=== PATIENT | female | born 1970 | race Caucasian/White ===

== ENCOUNTER 2018-04-19 09:17 | Day surgery (SDC) | payer OTHER ==
[~2018-04-19 09:17] MED LIST: ALBU90OI INH; ALLEGRA ALLERG180 MG PO; ALLER-FEX180 MG PO; AMIT10; AMIT25; AMIT50 PO; APRE80; Amitriptyline H50 MG PO; CHOL10002 PO; CITRACAL D + H1 EACH PO; CYCL10; CYCL10 PO; CYCLOPHOSPHAMIDE; Calcium Citrat250 MG PO; Coumadin5 MG PO; DEXAMETH; DHEA PO; DOXORUBICIN; Dhea Tablet1 EACH PO; ESZO3; ESZO3 PO; FEXO180; FLUC150A PO; FLUT.05NI; FOLI1 PO; Flonase 0.05% N16 GM; GABA300; HYDACE5; HYDR1TAB94 PO; IBUP800 PO; Inderal40 MG; Inderal40 MG PO; LEVSOD75 PO; LEVSOD88 PO; LIOT5 PO; Lovenox100 MG/1 M SC; METHOTREXA25 MG/1 M8; MILLIPRED DP5 MG PO; MULVITA; Methotrexa25 MG/1 ML INJ; NAPR500 PO; Norco 5-325 Ta1 EACH PO; OMEPRAZOLE MAGN20 MG PO; OTEZLA30 MG PO; OTREXUP 1212.5 MG/0. INJ; OXYACE5T; OXYACE5T PO; Omeprazole20 M1 PO; PARO20; PARO30 PO; PILO5 PO; POTA10T PO; PRED5; PRED5 PO; PREG25 PO; PREG300 PO; PROM25 PO; PROP80ER PO; Prednisone20 MG PO; Prilosec Otc20 MG PO; SIMPONI AR50 MG/4 ML; SIMPONI AR50 MG/4 ML IV; SODCITSO; SULF500A; TOPI25 PO; TOPI50 PO; VITAMIN D35000 UNI1 PO; WARF5; ZOLM2.5; ZOLM5; ZOLM5 PO; Zithromax250 MG PO; Zomig5 M1; [UNRECOGNIZED DRUG - CODE]; [UNRECOGNIZED DRUG - OTHER]; qvar; remicade
--- NOTE | 2018-04-19 12:22 | NUR ---
04/19/18 1222 Kierra Zhang LATE ENTRY---UPON ARRIVAL INTO STEP DOWN PATIENT ADMITTED THAT SHE HAD ABDOMINAL PAIN 4/10 THAT WAS STEADY AND CONSTANT IN NATURE. NO PAIN MEDS NEEDED AND PAIN IS TOLERABLE. WHEN DISCUSSING DISCHARGE INSTRUCTIONS THE PATIENT THEN RATED HER PAIN AT 2/[address] WINKLER WAS NOTIFIED AND NO ADDITIONAL ORDERS WERE GIVEN. PATIENT DRESSED WITHOUT ASSISTANCE AND I WALKED HER OUT TO THE CAR. SHE SAID HER PAIN WAS IMPROVING AND ALMOST GONE. PATIENT DISCHARGED IN STABLE CONDITION
== END 2018-04-19 11:48 | disposition home or self-care (01) ==
LOC: ORSCSDS 09:17
PROVIDERS: Surgery
PROC: 0DBM8ZX Excision of Descending Colon, Via Natural or Artificial Opening Endoscopic, Diagnostic (ICD-10-PCS; principal; 2018-04-19 11:00)
PROC: 0DBK8ZX Excision of Ascending Colon, Via Natural or Artificial Opening Endoscopic, Diagnostic (ICD-10-PCS; principal; 2018-04-19 11:00)
PROC: 0DBH8ZX Excision of Cecum, Via Natural or Artificial Opening Endoscopic, Diagnostic (ICD-10-PCS; principal; 2018-04-19 11:00)
PROC: 0DBL8ZX Excision of Transverse Colon, Via Natural or Artificial Opening Endoscopic, Diagnostic (ICD-10-PCS; principal; 2018-04-19 11:00)
DX: Z12.11 Encounter for screening for malignant neoplasm of colon (principal); D12.0 Benign neoplasm of cecum; D12.2 Benign neoplasm of ascending colon; D12.3 Benign neoplasm of transverse colon; K63.5 Polyp of colon; E03.9 Hypothyroidism, unspecified; G47.33 Obstructive sleep apnea (adult) (pediatric); J45.909 Unspecified asthma, uncomplicated; Z79.899 Other long term (current) drug therapy; E66.01 Morbid (severe) obesity due to excess calories; Z68.41 Body mass index [BMI] 40.0-44.9, adult
CPT/HCPCS: 88305; J7120

== ENCOUNTER → 2018-05-12 | Outpatient (CLI) | payer OTHER | LOC: LAB 14:00 → LAB SHORT 14:00 | DX: R19.7 Diarrhea, unspecified (principal) | CPT/HCPCS: 87493 ==

== ENCOUNTER 2018-09-28 06:42 | Day surgery (SDC) | payer OTHER ==
[~2018-09-28] VITALS: Ht 160 cm; Wt 107.6 kg
[~2018-09-28 06:42] MED LIST changes: +DULO60 PO; +METHOTREXA25 MG/1 M8 IM
== END 2018-09-28 08:44 | disposition home or self-care (01) ==
LOC: ORSCSDS 06:42
PROVIDERS: Surgery
PROC: 0DB48ZX Excision of Esophagogastric Junction, Via Natural or Artificial Opening Endoscopic, Diagnostic (ICD-10-PCS; principal; 2018-09-28 08:00)
PROC: 0DB68ZX Excision of Stomach, Via Natural or Artificial Opening Endoscopic, Diagnostic (ICD-10-PCS; principal; 2018-09-28 08:00)
DX: R10.13 Epigastric pain (principal); K31.7 Polyp of stomach and duodenum; K29.70 Gastritis, unspecified, without bleeding; G47.33 Obstructive sleep apnea (adult) (pediatric); G47.30 Sleep apnea, unspecified; F51.9 Sleep disorder not due to a substance or known physiological condition, unspecified; K21.9 Gastro-esophageal reflux disease without esophagitis; E03.9 Hypothyroidism, unspecified; E78.5 Hyperlipidemia, unspecified; I10 Essential (primary) hypertension; E66.9 Obesity, unspecified; Z68.41 Body mass index [BMI] 40.0-44.9, adult; Z79.899 Other long term (current) drug therapy
CPT/HCPCS: 88305; 88342; J2405; J2704; J7120

== ENCOUNTER → 2019-05-23 | Outpatient (CLI) | payer OTHER | LOC: LAB 12:00 → LAB SHORT 12:00 | DX: R00.0 Tachycardia, unspecified (principal) | CPT/HCPCS: 84443 ==

== ENCOUNTER 2020-08-25 18:02 | Emergency (ER) | payer OTHER ==
[~2020-08-25] VITALS: Ht 160 cm; Wt 108.9 kg
[~2020-08-25 18:02] MED LIST changes: +BISOPROLOL; +Bisoprolol Fumar5 MG PO; +DULOXETINE HCL60 M1 PO; +FUROSEMIDE20 MG PO; +GABA300 PO; +OMEP20ER PO; +PRED20 PO; -Prilosec Otc20 MG PO; +VITAMIN D5000 UNIT PO
== END 2020-08-25 20:01 | disposition home or self-care (01) ==
LOC: ER 18:02
DX: R60.0 Localized edema (principal); E03.9 Hypothyroidism, unspecified; Z88.1 Allergy status to other antibiotic agents; Z91.041 Radiographic dye allergy status; Z79.899 Other long term (current) drug therapy; Z79.52 Long term (current) use of systemic steroids
CPT/HCPCS: 36415; 93971; 99283-25

== ENCOUNTER 2020-09-10 16:30 | Emergency (ER) | payer OTHER ==
[~2020-09-10] VITALS: Ht 160 cm; Wt 115.5 kg
[2020-09-10 20:02] LABS: BASOPHILS ABSOLUTE AUTO 0.06 K/mm3 (0.00-0.23); BASOPHILS PERCENT AUTO 0 % (0-2); EOSINOPHILS ABSOLUTE AUTO 0.28 K/mm3 (0.00-0.68); EOSINOPHILS PERCENT AUTO 2 % (0-6); Hematocrit 30.5 % (33.0-51.0); Hemoglobin 8.8 g/dL (11.5-16.0); IMMATURE GRAN ABSOLUTE AUTO 0.29 K/mm3 (0.00-0.10); IMMATURE GRAN PERCENT AUTO 2 % (0-1); LYMPHOCYTES ABSOLUTE AUTO 2.48 K/mm3 (0.84-5.20); LYMPHOCYTES PERCENT AUTO 13 % (21-46); MONOCYTES ABSOLUTE AUTO 1.03 K/mm3 (0.16-1.47); MONOCYTES PERCENT AUTO 6 % (4-13); Mean Corpuscular HGB Conc 28.9 g/dL (31.5-36.5); Mean Corpuscular Volume 90 fL (80-100); Mean Platelet Volume 9.5 fL (9.1-12.4); NEUTROPHILS ABSOLUTE AUTO 14.63 K/mm3 (1.96-9.15); NEUTROPHILS PERCENT AUTO 78 % (41-73); NRBC ABSOLUTE 0.09 K/mm3 (0.00-0.02); NRBC Auto 0.5 /100 WBC (0.0-0.2); Platelet Count 458 K/mm3 (150-400); RDW Standard Deviation 57.2 fL (35.1-46.3); Red Blood Cell Count 3.39 M/mm3 (3.80-5.20); White Blood Cell Count 18.77 K/mm3 (4.00-11.30)
[2020-09-10] MEDS ORDERED: CYCL10 PO (20:20)
[2020-09-10] MEDS ORDERED: PILO5 PO (20:21)
[2020-09-10] MEDS ORDERED: CODACE30 PO (20:22)
[2020-09-10] MEDS ORDERED: NEURONTIN300 MG PO (20:23)
[2020-09-10] MEDS ORDERED: Prednisone10 MG PO (20:23)
[2020-09-10] MEDS ORDERED: OTEZLA30 MG PO (20:24)
[2020-09-10] MEDS ORDERED: MOBIC15 MG PO (20:25)
[2020-09-10] MEDS ORDERED: LEUC5 PO (20:25)
[2020-09-10] MEDS ORDERED: ATOR40TA PO (20:26)
[2020-09-10] MEDS ORDERED: FUROSEMIDE20 MG PO (20:26)
[2020-09-10] MEDS ORDERED: METF500 PO (20:27)
[2020-09-10] MEDS ORDERED: ESZOPICLONE3 MG PO (20:27)
[2020-09-10] MEDS ORDERED: CYMBALTA30 M2 PO (20:28)
[2020-09-10 20:29] LABS: Alanine Aminotransfer (ALT/SGP 52 U/L (12-78); Albumin, Blood 3.4 g/dL (3.4-5.0); Albumin/Globulin Ratio 0.8 (0.8-1.8); Alk Phos 151 U/L (50-136); Anion Gap 6 mmol/L (6-16); Aspartate Aminotrans (AST/SGOT 37 U/L (12-37); Bilirubin, Total 0.5 mg/dL (0.1-1.0); Blood Urea Nitrogen 6 mg/dL (8-24); Bun/Creatinine Ratio 9.4 (12.0-20.0); CO2, Blood 32 mmol/L (21-32); Calcium, Blood 9.4 mg/dL (8.5-10.1); Chloride, Blood 97 mmol/L (98-108); Creatinine, Blood 0.64 mg/dL (0.40-1.00); Globulin, Blood 4.2 g/dL (2.2-4.0); Glomerular Filtration Rate >60 (60-); Glucose, Blood 116 mg/dL (70-99); Magnesium, Blood 1.2 mg/dL (1.6-2.4); Potassium, Blood 3.3 mmol/L (3.5-5.5); Sodium, Blood 135 mmol/L (136-145); Total Protein, Blood 7.6 g/dL (6.4-8.2)
[2020-09-10] MEDS ORDERED: LIOT5 PO (20:29)
[2020-09-10] MEDS ORDERED: EUTHYROX50 MCG PO (20:29)
[2020-09-10] MEDS ORDERED: METO25 PO (20:30)
[2020-09-10] MEDS ORDERED: PAXIL40 M1 PO (20:31)
[2020-09-10] MEDS ORDERED: Amitriptyline H50 MG PO (21:40)
[2020-09-10] MEDS ORDERED: CLOP75 PO (21:43)
[2020-09-10] MEDS ORDERED: Percocet 5-3251 EACH PO (21:43)
[2020-09-10] MEDS ORDERED: XARELTO2.5 M1 PO (21:43)
[2020-09-10] MEDS ORDERED: XATMEP2.5 MG/1 M IM (22:07)
[2020-09-10 22:19] LABS: International Normalized Ratio 1.06; Prothrombin Time Results 11.4 Sec (9.7-11.5)
== END 2020-09-10 22:30 | disposition home or self-care (01) ==
LOC: ER 16:30
PROVIDERS: Emergency Medicine
DX: I70.202 Unspecified atherosclerosis of native arteries of extremities, left leg (principal); Z79.899 Other long term (current) drug therapy; Z91.041 Radiographic dye allergy status; Z88.1 Allergy status to other antibiotic agents
CPT/HCPCS: 80053; 83735; 85025; 85610; 85730; 86850; 86900; 86901; 93926; 96374; 99284-25; A9270; J1644; J3010

== ENCOUNTER 2020-09-20 13:27 | Emergency (ER) | payer OTHER ==
[~2020-09-20] VITALS: Ht 160 cm; Wt 115.2 kg
[~2020-09-20 13:27] MED LIST changes: +ATOR40TA PO; +CLOP75 PO; +CODACE30 PO; +CYMBALTA30 M2 PO; +ESZOPICLONE3 MG PO; +EUTHYROX50 MCG PO; +LEUC5 PO; +METF500 PO; +METO25 PO; +MOBIC15 MG PO; +NEURONTIN300 MG PO; +PAXIL40 M1 PO; +Percocet 5-3251 EACH PO; +Prednisone10 MG PO; +XARELTO2.5 M1 PO; +XATMEP2.5 MG/1 M IM
[2020-09-20 14:07] LABS: Source, Urine Clean Catch
[2020-09-20 14:19] LABS: Bilirubin, Urine Neg (Neg); Blood, Urine 1+ (Neg); Glucose Qualitative, Urine Neg (Neg); Ketones, Urine Neg (Neg); Leukocyte Esterase, Urine 3+ (Neg); Nitrite, Urine Neg (Neg); Protein, Urine Neg (Neg); Specific Gravity, Urine 1.005 (1.003-1.022); Urobilinogen, Urine NORM (Normal); pH, Urine 6.5 (5.0-8.0)
[2020-09-20 14:28] LABS: Appearance, Urine Hazy (Clear); Color, Urine Pale Yellow (P-Yellow)
[2020-09-20 14:29] LABS: Squamous Epithelial Cells Many /hpf (Few); White Blood Cells, Urine 50-100 /hpf (0-5)
[2020-09-20 14:30] LABS: Bacteria Many /hpf; Red Blood Cells, Urine 0-2 /hpf (0-2)
[2020-09-20] MEDS ORDERED: Percocet 5-3251 EACH PO (14:39)
== END 2020-09-20 14:55 | disposition home or self-care (01) ==
LOC: ER 13:27
PROVIDERS: Physician Assistant
DX: B35.3 Tinea pedis (principal); I73.9 Peripheral vascular disease, unspecified; Z88.1 Allergy status to other antibiotic agents; Z79.84 Long term (current) use of oral hypoglycemic drugs; Z91.041 Radiographic dye allergy status; Z79.899 Other long term (current) drug therapy
CPT/HCPCS: 81001; 87077; 87086; 87186; 99283

== ENCOUNTER 2020-09-24 07:33 | Day surgery (SDC) | payer OTHER ==
[~2020-09-24] VITALS: Ht 160 cm; Wt 115.0 kg
[2020-09-24 08:06] LABS: BASOPHILS ABSOLUTE AUTO 0.03 K/mm3 (0.00-0.23); BASOPHILS PERCENT AUTO 0 % (0-2); EOSINOPHILS PERCENT AUTO 0 % (0-6); Hematocrit 34.3 % (33.0-51.0); Hemoglobin 9.9 g/dL (11.5-16.0); IMMATURE GRAN ABSOLUTE AUTO 0.24 K/mm3 (0.00-0.10); IMMATURE GRAN PERCENT AUTO 2 % (0-1); LYMPHOCYTES ABSOLUTE AUTO 1.14 K/mm3 (0.84-5.20); LYMPHOCYTES PERCENT AUTO 8 % (21-46); MONOCYTES ABSOLUTE AUTO 0.17 K/mm3 (0.16-1.47); MONOCYTES PERCENT AUTO 1 % (4-13); Mean Corpuscular HGB 27.7 pg (26.0-34.0); Mean Corpuscular HGB Conc 28.9 g/dL (31.5-36.5); Mean Corpuscular Volume 96 fL (80-100); Mean Platelet Volume 9.4 fL (9.1-12.4); NEUTROPHILS ABSOLUTE AUTO 12.22 K/mm3 (1.96-9.15); NEUTROPHILS PERCENT AUTO 89 % (41-73); NRBC ABSOLUTE 0.19 K/mm3 (0.00-0.02); NRBC Auto 1.4 /100 WBC (0.0-0.2); Platelet Count 478 K/mm3 (150-400); RDW Coefficient Variation 23.3 % (11.7-14.2); RDW Standard Deviation 71.1 fL (35.1-46.3); Red Blood Cell Count 3.57 M/mm3 (3.80-5.20)
[2020-09-24 08:20] LABS: Anion Gap 17 mmol/L (6-16); Blood Urea Nitrogen 3 mg/dL (8-24); Bun/Creatinine Ratio 4.7 (12.0-20.0); CO2, Blood 21 mmol/L (21-32); Calcium, Blood 8.4 mg/dL (8.5-10.1); Chloride, Blood 99 mmol/L (98-108); Creatinine, Blood 0.64 mg/dL (0.40-1.00); Glomerular Filtration Rate >60 (60-); Glucose, Blood 187 mg/dL (70-99); Potassium, Blood 3.4 mmol/L (3.5-5.5); Sodium, Blood 137 mmol/L (136-145)
[2020-09-24 08:28] LABS: International Normalized Ratio 1.1; Prothrombin Time Results 11.8 Sec (9.7-11.5)
--- NOTE | 2020-09-24 13:21 | NUR ---
PT AMB TO BATHROOM /C SBA. TOLERATED WELL. -BLEEDING OR SWELLING R GROIN AREA.
--- NOTE | 2020-09-24 13:22 | NUR ---
PT VERBALIZED UNDERSTANDING OF WRITTEN AND VERBAL D/C INST. IV REMOVED. PT TAKEN OUT OF THE HRT CENTER VIA W/C.
== END 2020-09-24 13:45 | disposition home or self-care (01) ==
LOC: MHTC 07:33
PROVIDERS: Radiology Diagnostic Radiology
DX: I70.202 Unspecified atherosclerosis of native arteries of extremities, left leg (principal); M79.605 Pain in left leg; I99.8 Other disorder of circulatory system; M06.9 Rheumatoid arthritis, unspecified; E66.9 Obesity, unspecified; G47.33 Obstructive sleep apnea (adult) (pediatric); Z85.3 Personal history of malignant neoplasm of breast; Z86.711 Personal history of pulmonary embolism; Z88.1 Allergy status to other antibiotic agents; Z91.041 Radiographic dye allergy status; Z88.8 Allergy status to other drugs, medicaments and biological substances; Z68.42 Body mass index [BMI] 45.0-49.9, adult; Z92.21 Personal history of antineoplastic chemotherapy; Z96.653 Presence of artificial knee joint, bilateral; Z79.02 Long term (current) use of antithrombotics/antiplatelets; Z79.01 Long term (current) use of anticoagulants; Z79.52 Long term (current) use of systemic steroids
CPT/HCPCS: 37184; 37185; 37226; 37228; 37232; 75625; 75716; 75774; 76937; 80048; 85025; 85347; 85610; 99152; 99153; C1725; C1753; C1757; C1760; C1769; C1874; C1887; C1894; J0171; J1200; J2250; J2997; J3010; J7030; Q9967

== ENCOUNTER → 2020-10-12 | Outpatient (CLI) | payer OTHER | LOC: LAB 11:32 → LAB SHORT 11:32 | DX: L08.0 Pyoderma (principal); Z91.041 Radiographic dye allergy status; Z88.1 Allergy status to other antibiotic agents; Z88.8 Allergy status to other drugs, medicaments and biological substances | CPT/HCPCS: 87070; 87077; 87186; 87205 ==

== ENCOUNTER 2020-11-03 04:13 | Day surgery (SDC) | payer OTHER | END 2020-11-03 22:41 | disposition home or self-care (01) | LOC: WOUND 04:13 | DX: I70.213 Atherosclerosis of native arteries of extremities with intermittent claudication, bilateral legs (principal); L97.529 Non-pressure chronic ulcer of other part of left foot with unspecified severity; Z88.1 Allergy status to other antibiotic agents; Z91.041 Radiographic dye allergy status | CPT/HCPCS: G0463 ==

== ENCOUNTER 2020-11-10 02:33 | Day surgery (SDC) | payer OTHER | END 2020-11-10 23:28 | disposition home or self-care (01) | LOC: WOUND 02:33 | DX: I70.245 Atherosclerosis of native arteries of left leg with ulceration of other part of foot (principal); L97.529 Non-pressure chronic ulcer of other part of left foot with unspecified severity; I70.211 Atherosclerosis of native arteries of extremities with intermittent claudication, right leg | CPT/HCPCS: G0463 ==

== ENCOUNTER 2020-11-17 01:59 | Day surgery (SDC) | payer OTHER | END 2020-11-17 23:00 | disposition home or self-care (01) | LOC: WOUND 01:59 | DX: L97.529 Non-pressure chronic ulcer of other part of left foot with unspecified severity (principal); I70.222 Atherosclerosis of native arteries of extremities with rest pain, left leg; S91.202S Unspecified open wound of left great toe with damage to nail, sequela; S91.105 Unspecified open wound of left lesser toe(s) without damage to nail | CPT/HCPCS: G0463 ==

== ENCOUNTER 2020-11-18 06:23 | Day surgery (SDC) | payer OTHER ==
[~2020-11-18] VITALS: Ht 160 cm; Wt 109.0 kg
--- NOTE | 2020-11-18 10:04 | NUR ---
PT BROUGHT BACK TO RECOVERY WITH R SIDED SHEATH IN PLACE WITH INFUSION CATHETER PLACED TO L LEG. PLAN OF CARE ASSESSED/ NEW ORDERS IN PLACE. WILL DRIP TpA & HEPARIN GTT FOR THE NEXT 4 HRS, TO RETURN TO AUTO REPAIR SHOP MANAGER FOR REASSESSMENT. NO BLEEDING OR HEMATOMA NOTED AT SITE. PT RESTING COMFORTABLY. VSS. NADN. WILL CONTINUE TO MONITOR.
--- NOTE | 2020-11-18 10:12 | NUR ---
PER DR OSBORNE ORDERS- HEPARIN 500 UNITS/HR GTT STARTED TO SIDE PORT OF SHEATH AND TpA 3MG/ HR GTT STARTED INFUSING VIA INFUSION CATHETER VIA. WILL CONTINUE TO MONITOR. PT RESTING COMFORTABLY, SLEEPING, AROUSES WITH VERABAL STIMULI. VSS. NADN. CALL LIGHT WITHIN REACH.
--- NOTE | 2020-11-18 11:44 | NUR ---
PT REMAINS LAYING SUPINE. tPA AND HEPARIN ARE INFUSING THROUGH THE SHEATH ORDERED. R FEM SITE HAS NO BLEEDING, OOZING OR HEMATOMA NOTED. PT DENIES ANY PAIN AT SITE BUT REPORTS SOME DISCOMFORT IN LEGS AND FEET. PT GIVEN ICE CHIPS AND DENIES ANY FURTHER NEEDS AT THIS TIME. VSS. WILL CONTINUE TO MONITOR.
--- NOTE | 2020-11-18 13:46 | NUR ---
PT GIVEN PERCOCET PO PER ORDERS D/T INCREASED BACK AND LEG PAIN. TOLERATES WELL. VSS. TpA GTT HAS FINISHED INFUSING. HEPARIN GTT INFUSING WELL.
--- NOTE | 2020-11-18 14:52 | NUR ---
PT HEPARIN GTT DC'D PER DR OSBORNE. PT BROUGHT BACK TO BALL MACHINE OPERATOR FOR FURTHER INTERVENTION. VSS. DEJESUS.
--- NOTE | 2020-11-18 17:35 | NUR ---
PT RESTING COMFORATBLY. VSS. NADN. R FEMORAL SITE REMAINS CLEAR. NO BLEEDING OR HEMATOMA NOTED. PT EATING LUNCH AT THIS TIME. WILL CONTINUE TO MONITOR
--- NOTE | 2020-11-18 18:03 | NUR ---
PT DRESSES SELF WITHOUT DIFF. R FEMORAL SITE REMAINS CLEAR. NO BLEDING OR HEMATOMA NOTED. PT VERBALIZES UNDERSTANDING WRITTEN AND VERBAL ORDERS. PT IV DC.D. CATH IN TACT. PRESSURE DSG APPLIED. PT WILL BE DC'D TO HOME VIA WC.
== END 2020-11-18 23:01 | disposition home or self-care (01) ==
LOC: MHTC 06:23
DX: I70.213 Atherosclerosis of native arteries of extremities with intermittent claudication, bilateral legs (principal); M06.09 Rheumatoid arthritis without rheumatoid factor, multiple sites; Z85.3 Personal history of malignant neoplasm of breast; Z91.041 Radiographic dye allergy status; Z88.8 Allergy status to other drugs, medicaments and biological substances
CPT/HCPCS: 37184; 37185; 37211; 37226; 37228; 37232; 75716; 75774; 76937; 85347; 99152; 99153; A9270; C1725; C1757; C1760; C1769; C1874; C1887; C1894; J1644; J2060; J2250; J2405; J2997; J3010; J7030; J7040; J7050; Q9967

== ENCOUNTER 2020-11-24 00:23 | Day surgery (SDC) | payer OTHER | END 2020-11-24 22:37 | disposition home or self-care (01) | LOC: WOUND 00:23 | DX: L97.521 Non-pressure chronic ulcer of other part of left foot limited to breakdown of skin (principal); I73.9 Peripheral vascular disease, unspecified; I70.222 Atherosclerosis of native arteries of extremities with rest pain, left leg; C50.919 Malignant neoplasm of unspecified site of unspecified female breast; M06.9 Rheumatoid arthritis, unspecified; Z92.21 Personal history of antineoplastic chemotherapy; Z92.3 Personal history of irradiation; Z79.899 Other long term (current) drug therapy | CPT/HCPCS: G0463 ==

== ENCOUNTER 2020-12-01 01:50 | Day surgery (SDC) | payer OTHER | END 2020-12-01 22:57 | disposition home or self-care (01) | LOC: WOUND 01:50 | DX: L97.521 Non-pressure chronic ulcer of other part of left foot limited to breakdown of skin (principal); I73.9 Peripheral vascular disease, unspecified; I70.222 Atherosclerosis of native arteries of extremities with rest pain, left leg; M06.9 Rheumatoid arthritis, unspecified; S91.202D Unspecified open wound of left great toe with damage to nail, subsequent encounter; Z85.3 Personal history of malignant neoplasm of breast; Z92.3 Personal history of irradiation; Z92.21 Personal history of antineoplastic chemotherapy ==

== ENCOUNTER 2020-12-22 03:45 | Day surgery (SDC) | payer BC ==
[~2020-12-22 03:45] MED LIST changes: +XARELTO15 MG PO; +XARELTO20 MG PO
== END 2020-12-22 23:38 | disposition home or self-care (01) ==
LOC: WOUND 03:45
DX: S91.202S Unspecified open wound of left great toe with damage to nail, sequela (principal); S91.105 Unspecified open wound of left lesser toe(s) without damage to nail; X58.XXXS Exposure to other specified factors, sequela; I70.222 Atherosclerosis of native arteries of extremities with rest pain, left leg; M06.9 Rheumatoid arthritis, unspecified; Z85.3 Personal history of malignant neoplasm of breast; Z79.899 Other long term (current) drug therapy
CPT/HCPCS: G0463

== ENCOUNTER 2020-12-25 15:07 | Emergency (ER) | payer BC ==
[~2020-12-25] VITALS: Ht 160 cm; Wt 105.2 kg
[2020-12-25 16:19] LABS: BASOPHILS ABSOLUTE AUTO 0.06 K/mm3 (0.00-0.23); BASOPHILS PERCENT AUTO 0 % (0-2); EOSINOPHILS ABSOLUTE AUTO 0.42 K/mm3 (0.00-0.68); EOSINOPHILS PERCENT AUTO 2 % (0-6); Hematocrit 28.8 % (33.0-51.0); Hemoglobin 8.6 g/dL (11.5-16.0); IMMATURE GRAN ABSOLUTE AUTO 0.17 K/mm3 (0.00-0.10); IMMATURE GRAN PERCENT AUTO 1 % (0-1); LYMPHOCYTES ABSOLUTE AUTO 0.91 K/mm3 (0.84-5.20); LYMPHOCYTES PERCENT AUTO 5 % (21-46); MONOCYTES ABSOLUTE AUTO 0.51 K/mm3 (0.16-1.47); MONOCYTES PERCENT AUTO 3 % (4-13); Mean Corpuscular HGB 29.9 pg (26.0-34.0); Mean Corpuscular HGB Conc 29.9 g/dL (31.5-36.5); Mean Corpuscular Volume 100 fL (80-100); Mean Platelet Volume 9.9 fL (9.1-12.4); NEUTROPHILS ABSOLUTE AUTO 15.75 K/mm3 (1.96-9.15); NEUTROPHILS PERCENT AUTO 88 % (41-73); NRBC ABSOLUTE 0.08 K/mm3 (0.00-0.02); NRBC Auto 0.4 /100 WBC (0.0-0.2); Platelet Count 644 K/mm3 (150-400); RDW Coefficient Variation 15.9 % (11.7-14.2); RDW Standard Deviation 58.4 fL (35.1-46.3); Red Blood Cell Count 2.88 M/mm3 (3.80-5.20); White Blood Cell Count 17.82 K/mm3 (4.00-11.30)
[2020-12-25 16:34] LABS: Alanine Aminotransfer (ALT/SGP 29 U/L (12-78); Albumin, Blood 3.1 g/dL (3.4-5.0); Albumin/Globulin Ratio 0.7 (0.8-1.8); Alk Phos 150 U/L (50-136); Anion Gap 7 mmol/L (6-16); Aspartate Aminotrans (AST/SGOT 35 U/L (12-37); Bilirubin, Total 0.6 mg/dL (0.1-1.0); Blood Urea Nitrogen 4 mg/dL (8-24); Bun/Creatinine Ratio 7.6 (12.0-20.0); CO2, Blood 26 mmol/L (21-32); Chloride, Blood 104 mmol/L (98-108); Creatinine, Blood 0.52 mg/dL (0.40-1.00); Globulin, Blood 4.2 g/dL (2.2-4.0); Glomerular Filtration Rate >60 (60-); Glucose, Blood 128 mg/dL (70-99); Potassium, Blood 4.1 mmol/L (3.5-5.5); Sodium, Blood 137 mmol/L (136-145); Total Protein, Blood 7.3 g/dL (6.4-8.2)
[2020-12-25] MEDS ORDERED: ELIQUIS2.5 MG PO (16:50)
[2020-12-25 19:55] LABS: International Normalized Ratio 1.08; Prothrombin Time Results 11.6 Sec (9.7-11.5)
== END 2020-12-26 00:38 | disposition home or self-care (01) ==
LOC: ER 15:07
PROVIDERS: Emergency Medicine; Physician Assistant
DX: I70.202 Unspecified atherosclerosis of native arteries of extremities, left leg (principal); M06.9 Rheumatoid arthritis, unspecified; E03.9 Hypothyroidism, unspecified; Z88.1 Allergy status to other antibiotic agents; Z88.8 Allergy status to other drugs, medicaments and biological substances; Z79.899 Other long term (current) drug therapy; Z79.02 Long term (current) use of antithrombotics/antiplatelets; Z86.718 Personal history of other venous thrombosis and embolism; Z86.711 Personal history of pulmonary embolism
CPT/HCPCS: 36415; 73630; 80053; 85025; 85610; 85730; 93926; 96374; 96375; 99284-25; A9270; J1644; J3370; J7050

== ENCOUNTER 2021-01-12 01:14 | Day surgery (SDC) | payer BC ==
[~2021-01-12 01:14] MED LIST changes: +ANTIFUNGAL POWD71 GM TOP; +ELIQUIS2.5 MG PO; +MAGNESIUM OXID500 MG PO; +POTASSIUM CHLO20 MEQ
== END 2021-01-12 23:02 | disposition home or self-care (01) ==
LOC: WOUND 01:14
DX: L97.529 Non-pressure chronic ulcer of other part of left foot with unspecified severity (principal); I70.222 Atherosclerosis of native arteries of extremities with rest pain, left leg; S91.202S Unspecified open wound of left great toe with damage to nail, sequela; S91.105 Unspecified open wound of left lesser toe(s) without damage to nail; X58.XXXS Exposure to other specified factors, sequela; Z91.041 Radiographic dye allergy status; Z88.1 Allergy status to other antibiotic agents; Z88.8 Allergy status to other drugs, medicaments and biological substances
CPT/HCPCS: G0463

== ENCOUNTER 2021-01-19 02:49 | Day surgery (SDC) | payer BC | END 2021-01-19 12:00 | disposition home or self-care (01) | LOC: WOUND 02:49 | DX: L97.529 Non-pressure chronic ulcer of other part of left foot with unspecified severity (principal); I70.222 Atherosclerosis of native arteries of extremities with rest pain, left leg; S91.202S Unspecified open wound of left great toe with damage to nail, sequela; S91.105 Unspecified open wound of left lesser toe(s) without damage to nail; X58.XXXS Exposure to other specified factors, sequela; I96 Gangrene, not elsewhere classified; D68.61 Antiphospholipid syndrome | CPT/HCPCS: G0463 ==

== ENCOUNTER 2021-01-21 07:12 | Emergency (ER) | payer BC ==
[~2021-01-21] VITALS: Ht 160 cm; Wt 101.6 kg
[2021-01-21] MEDS ORDERED: Norco 5-325 Ta1 EACH PO (08:35)
== END 2021-01-21 09:30 | disposition home or self-care (01) ==
LOC: ER 07:12
DX: S22.32XA Fracture of one rib, left side, initial encounter for closed fracture (principal); Z79.899 Other long term (current) drug therapy; W19.XXXA Unspecified fall, initial encounter
CPT/HCPCS: 71045; 96372; 99283-25; J1885; J3010

== ENCOUNTER 2021-01-23 15:01 | Emergency (ER) | payer BC ==
[~2021-01-23] VITALS: Ht 160 cm; Wt 101.6 kg
== END 2021-01-23 17:57 | disposition home or self-care (01) ==
LOC: ER 15:01
DX: M25.562 Pain in left knee (principal); Z86.711 Personal history of pulmonary embolism; Z79.01 Long term (current) use of anticoagulants; Z88.1 Allergy status to other antibiotic agents; Z91.048 Other nonmedicinal substance allergy status; Z79.52 Long term (current) use of systemic steroids; Z79.899 Other long term (current) drug therapy
CPT/HCPCS: 93926; 93971; 99283-25; A9270

== ENCOUNTER 2021-01-26 04:39 | Day surgery (SDC) | payer BC | END 2021-01-26 22:40 | disposition home or self-care (01) | LOC: WOUND 04:39 | DX: L97.522 Non-pressure chronic ulcer of other part of left foot with fat layer exposed (principal); L97.529 Non-pressure chronic ulcer of other part of left foot with unspecified severity; S91.202S Unspecified open wound of left great toe with damage to nail, sequela; S91.105 Unspecified open wound of left lesser toe(s) without damage to nail; X58.XXXS Exposure to other specified factors, sequela; I70.222 Atherosclerosis of native arteries of extremities with rest pain, left leg; D68.61 Antiphospholipid syndrome | CPT/HCPCS: G0463 ==

== ENCOUNTER 2021-02-02 01:28 | Day surgery (SDC) | payer BC | END 2021-02-02 22:49 | disposition home or self-care (01) | LOC: WOUND 01:28 | DX: I70.245 Atherosclerosis of native arteries of left leg with ulceration of other part of foot (principal); L97.529 Non-pressure chronic ulcer of other part of left foot with unspecified severity; L97.522 Non-pressure chronic ulcer of other part of left foot with fat layer exposed; M06.9 Rheumatoid arthritis, unspecified; Z79.899 Other long term (current) drug therapy; Z95.820 Peripheral vascular angioplasty status with implants and grafts | CPT/HCPCS: G0463 ==

== ENCOUNTER 2021-02-09 01:25 | Day surgery (SDC) | payer BC | END 2021-02-09 22:40 | disposition home or self-care (01) | LOC: WOUND 01:25 | DX: L97.522 Non-pressure chronic ulcer of other part of left foot with fat layer exposed (principal); L97.529 Non-pressure chronic ulcer of other part of left foot with unspecified severity; S91.202S Unspecified open wound of left great toe with damage to nail, sequela; S91.105 Unspecified open wound of left lesser toe(s) without damage to nail; X58.XXXS Exposure to other specified factors, sequela; I70.222 Atherosclerosis of native arteries of extremities with rest pain, left leg; I96 Gangrene, not elsewhere classified; D68.61 Antiphospholipid syndrome | CPT/HCPCS: G0463 ==

== ENCOUNTER 2021-02-16 03:18 | Day surgery (SDC) | payer BC | END 2021-02-16 23:35 | disposition home or self-care (01) | LOC: WOUND 03:18 | DX: I70.268 Atherosclerosis of native arteries of extremities with gangrene, other extremity (principal); L98.499 Non-pressure chronic ulcer of skin of other sites with unspecified severity; D68.61 Antiphospholipid syndrome | CPT/HCPCS: G0463 ==

== ENCOUNTER 2021-02-22 10:17 | Day surgery (SDC) | payer BC ==
[~2021-02-22] VITALS: Ht 160 cm; Wt 100.0 kg
[2021-02-22] MEDS ORDERED: PANTOPRAZOLE SO40 M2 PO (11:35)
== END 2021-02-22 13:33 | disposition home or self-care (01) ==
LOC: ORSCSDS 10:17
PROVIDERS: Podiatrist Foot & Ankle Surgery
PROC: 0Y6Q0Z3 Detachment at Left 1st Toe, Low, Open Approach (ICD-10-PCS; principal; 2021-02-22 12:00)
DX: L97.521 Non-pressure chronic ulcer of other part of left foot limited to breakdown of skin (principal); I10 Essential (primary) hypertension; E78.5 Hyperlipidemia, unspecified; G47.33 Obstructive sleep apnea (adult) (pediatric); Z86.718 Personal history of other venous thrombosis and embolism; Z79.01 Long term (current) use of anticoagulants; E11.9 Type 2 diabetes mellitus without complications; E66.01 Morbid (severe) obesity due to excess calories; Z68.39 Body mass index [BMI] 39.0-39.9, adult; Z79.899 Other long term (current) drug therapy
CPT/HCPCS: 82947; A9270; J0690; J2405; J2704; J3010; J7120

== ENCOUNTER → 2021-04-29 | Outpatient (CLI) | payer BC ==
[~2021-04-29] MED LIST changes: +PANTOPRAZOLE SO40 M2 PO
[2021-04-30 18:40] LABS: Adenovirus Not Detected (NOT DETECT); Coronavirus 229E Not Detected (NOT DETECT); Coronavirus HKU1 Not Detected (NOT DETECT); Coronavirus NL63 Not Detected (NOT DETECT); Coronavirus OC43 Not Detected (NOT DETECT); Human Metapneumovirus Not Detected (NOT DETECT); Human Rhinovirus/Enterovirus Not Detected (NOT DETECT); Influenza A/2009-H1 Not Detected (NOT DETECT); Influenza A/H1 Not Detected (NOT DETECT); Influenza A/H3 Not Detected (NOT DETECT); Influenza B Not Detected (NOT DETECT); Parainfluenza Virus 1 Not Detected (NOT DETECT); Parainfluenza Virus 2 Not Detected (NOT DETECT); Parainfluenza Virus 3 Not Detected (NOT DETECT); SARS-Cov-2 (COVID-19), BioFire Not Detected (NOT DETECT)
[2021-04-30 18:41] LABS: Bordetella pertussis Not Detected (NOT DETECT); Chlamydophila pneumoniae Not Detected (NOT DETECT); Mycoplasma pneumoniae Not Detected (NOT DETECT); Parainfluenza Virus 4 Not Detected (NOT DETECT); Respiratory Syncytial Virus Detected (NOT DETECT)
== END ==
LOC: LAB SHORT 15:15
PROVIDERS: Family Medicine
DX: J06.9 Acute upper respiratory infection, unspecified (principal)
CPT/HCPCS: 0202U

== ENCOUNTER 2021-06-14 13:16 | Emergency (ER) | payer BC ==
[~2021-06-14] VITALS: Ht 160 cm; Wt 96.2 kg
[~2021-06-14 13:16] MED LIST changes: -POTASSIUM CHLO20 MEQ; +POTASSIUM CHLO20 MEQ PO
[2021-06-14 14:54] LABS: BASOPHILS ABSOLUTE AUTO 0.05 K/mm3 (0.00-0.23); BASOPHILS PERCENT AUTO 0 % (0-2); EOSINOPHILS PERCENT AUTO 1 % (0-6); Hematocrit 38.2 % (33.0-51.0); Hemoglobin 12.1 g/dL (11.5-16.0); IMMATURE GRAN ABSOLUTE AUTO 0.07 K/mm3 (0.00-0.10); IMMATURE GRAN PERCENT AUTO 1 % (0-1); LYMPHOCYTES ABSOLUTE AUTO 1.68 K/mm3 (0.84-5.20); LYMPHOCYTES PERCENT AUTO 14 % (21-46); MONOCYTES ABSOLUTE AUTO 0.68 K/mm3 (0.16-1.47); MONOCYTES PERCENT AUTO 6 % (4-13); Mean Corpuscular HGB 30.9 pg (26.0-34.0); Mean Corpuscular HGB Conc 31.7 g/dL (31.5-36.5); Mean Corpuscular Volume 98 fL (80-100); Mean Platelet Volume 9.4 fL (9.1-12.4); NEUTROPHILS ABSOLUTE AUTO 9.71 K/mm3 (1.96-9.15); NEUTROPHILS PERCENT AUTO 79 % (41-73); Platelet Count 408 K/mm3 (150-400); RDW Coefficient Variation 19.9 % (11.7-14.2); RDW Standard Deviation 70.5 fL (35.1-46.3); Red Blood Cell Count 3.91 M/mm3 (3.80-5.20); White Blood Cell Count 12.29 K/mm3 (4.00-11.30)
[2021-06-14 15:48] LABS: Alanine Aminotransfer (ALT/SGP 81 U/L (12-78); Albumin, Blood 3.7 g/dL (3.4-5.0); Alk Phos 128 U/L (50-136); Anion Gap 9 mmol/L (6-16); Aspartate Aminotrans (AST/SGOT 120 U/L (12-37); Bilirubin, Total 0.5 mg/dL (0.1-1.0); Blood Urea Nitrogen 6 mg/dL (8-24); Bun/Creatinine Ratio 11.8 (12.0-20.0); CO2, Blood 25 mmol/L (21-32); Chloride, Blood 101 mmol/L (98-108); Creatinine, Blood 0.51 mg/dL (0.40-1.00); Globulin, Blood 3.7 g/dL (2.2-4.0); Glomerular Filtration Rate >60 (60-); Glucose, Blood 139 mg/dL (70-99); Potassium, Blood 3.8 mmol/L (3.5-5.5); Sodium, Blood 135 mmol/L (136-145); Total Protein, Blood 7.4 g/dL (6.4-8.2)
[2021-06-14 16:42] LABS: International Normalized Ratio 1.8; Prothrombin Time Results 18.2 Sec (9.7-11.5)
== END 2021-06-14 17:42 | disposition home or self-care (01) ==
LOC: ER 13:16
PROVIDERS: Emergency Medicine; Physician Assistant
DX: R07.89 Other chest pain (principal); R10.11 Right upper quadrant pain; M06.9 Rheumatoid arthritis, unspecified; E03.9 Hypothyroidism, unspecified; Z79.899 Other long term (current) drug therapy; Z88.8 Allergy status to other drugs, medicaments and biological substances
CPT/HCPCS: 36415; 71045; 76705; 80053; 83690; 85025; 85610; 96374; 96375; 99284-25; A9270; J1885; J2405

== ENCOUNTER 2021-07-12 06:32 | Day surgery (SDC) | payer BC ==
[~2021-07-12] VITALS: Ht 160 cm; Wt 96.0 kg
[~2021-07-12 06:32] MED LIST changes: +POTASSIUM CHLO20 MEQ; -POTASSIUM CHLO20 MEQ PO
[2021-07-12] MEDS ORDERED: WARF4 PO (06:35)
[2021-07-12] MEDS ORDERED: DHEA 2525 MG PO (06:36)
[2021-07-12] MEDS ORDERED: XELJANZ XR11 MG PO (06:36)
[2021-07-12] MEDS ORDERED: RINVOQ30 MG PO (06:37)
[2021-07-12 07:22] LABS: International Normalized Ratio 1.63; Prothrombin Time Results 16.6 Sec (9.7-11.5)
--- NOTE | 2021-07-12 09:40 | NUR ---
0990 PATEINT ARRIVED BACK FROM THE CATTLE MANAGER WITH RIGHT GROIN ANGIOSEAL, C/O 09/10 PAIN/ FALLING OFF TO SLEEP WHEN NOT STIMULATED WITH CONVERSATION OR TOUCH. PATIENT PLACED ON THE MONITOR AND VVS. TEMP 97.1 HOB FLAT. RIGHT GROIN CDI. NO BLEEDING. PULSES R PT DOPPLER, R DP 1+, L DP 1+, L PT 1+
--- NOTE | 2021-07-12 11:59 | NUR ---
1030 PATIENT AWAKE AND HOB UP. VVS, RIGHT GROIN SITE UNCHANGED. CDI.
--- NOTE | 2021-07-12 12:01 | NUR ---
1110 PATIENT UP OOB WALKING IN THE RECOVERY ROOM. RIGHT GROIN STABLE. NO BLEEDING NOTED. NO PAIN NOTED FROM THE PATIENT. PATIENT CALLED [facility], BUT THEY WILL NOT BE HERE UNTIL AFTER 1245. PATIENT DRESSED, PIV REMOVED, CATH TIP INTACT. PRESSURE DRESSING APPLIED. WAITING FOR QUALITY IMPROVEMENT ANALYST TO DISCAHRGE HOME. REVEIWED DISCHARGE INSTRUCTIONS AND COPY GIVEN TO RODNEY ALL QUESTIONS ANSWERED. FOLLOW UP APPOINTMENT UNSERSTOOD.
== END 2021-07-12 15:04 | disposition home or self-care (01) ==
LOC: MHTC 06:32
PROVIDERS: Radiology Diagnostic Radiology
DX: I70.223 Atherosclerosis of native arteries of extremities with rest pain, bilateral legs (principal); E03.9 Hypothyroidism, unspecified; E66.9 Obesity, unspecified; Z68.37 Body mass index [BMI] 37.0-37.9, adult; J45.909 Unspecified asthma, uncomplicated; Z79.01 Long term (current) use of anticoagulants; Z96.653 Presence of artificial knee joint, bilateral; Z91.09 Other allergy status, other than to drugs and biological substances; Z91.013 Allergy to seafood; Z88.8 Allergy status to other drugs, medicaments and biological substances
CPT/HCPCS: 37226; 75716; 75774; 76937; 85610; 99152; 99153; A9270; C1760; C1769; C1874; C1887; C1894; C2623; J1644; J2060; J2250; J3010; J3480; J7030; J7050; J7060; J7120; Q9967

== ENCOUNTER → 2021-07-20 | Outpatient (CLI) | payer BC ==
[~2021-07-20] MED LIST changes: +DHEA 2525 MG PO; +RINVOQ30 MG PO; +WARF4 PO; +XELJANZ XR11 MG PO
== END ==
LOC: LAB SHORT 18:36
DX: L08.9 Local infection of the skin and subcutaneous tissue, unspecified (principal)
CPT/HCPCS: 87070; 87077; 87186; 87205

== ENCOUNTER 2021-07-26 08:00 | Day surgery (SDC) | payer BC | END 2021-07-30 22:43 | disposition home or self-care (01) | LOC: MOI US 08:00 | DX: R92.0 Mammographic microcalcification found on diagnostic imaging of breast (principal); Z85.3 Personal history of malignant neoplasm of breast | CPT/HCPCS: 19281; A4648 ==

== ENCOUNTER 2021-08-23 07:01 | Day surgery (SDC) | payer BC ==
[~2021-08-23] VITALS: Ht 160 cm; Wt 97.5 kg
[~2021-08-23 07:01] MED LIST changes: -POTASSIUM CHLO20 MEQ; +POTASSIUM CHLO20 MEQ PO
[2021-08-23] MEDS ORDERED: PRED5 PO (08:24)
--- NOTE | 2021-08-23 08:42 | NUR ---
History, Chart, Medications and Allergies reviewed before start of procedure. Patient confirms NPO status and agrees with scheduled surgery. Pre-Op teaching done. Pt verbalizes understanding. Patient reports completing Chlorhexadine shower X2 prior to admission to hospital. 2 IV ATTEMPTS TO R ARM BY VIDHYA Degroot RN.
--- NOTE | 2021-08-23 09:00 | NUR ---
PTS GLASSES PUT IN PLASTIC BAG WITH PT LABEL AND PLACED IN PACU.
--- NOTE | 2021-08-23 18:23 | NUR ---
SHIFT SUMMARY: ARRIVED TO UNIT AROUND 1345. WAS INITALLY DROWSY BUT AFTER NAP ALERT AND COOPERATIVE. HAS BEEN UP TO BATHROOM W/ SBA. DANGLED AT BEDSIDE FOR DINNER. NO CHANGES TO DRESSING SITES. PAIN REASONABLY CONTROLLED.
--- NOTE | 2021-08-23 21:21 | NUR ---
AGREE WITH TAR POT MAN SHIFT ASSESSMENT DOCUMENTATION.
--- NOTE | 2021-08-24 04:01 | NUR ---
SHIFT SUMMARY PT POD1 FOR TOTAL MASTECTOMY, MARIO DRAIN TO THE RU CHEST AND CARLOS CHEST, OUT PUT OF 25MLS AND 30MLS, SEROSANGUINOUS DRAINAGE. GAUZE TO BILAT CHEST C/D/I WITH BREAST BINDER IN PLACE. PT ON 2LNC AT START OF SHIFT SATS ABOVE 93% RT TO ROOM WITH CPAP SET UP. PT ABLE TO TOLERATE PO INTAKE, SALINE LOCKED IV ON L WRIST. PT UP TO THE BATHROOM SBA FOR LINE MANAGEMENT. VOIDING EASILY .DENIES GAS AT THIS TIME. PT MEDICATED FOR PAIN PER EMAR.VSS, CALL LIGHT IN REACH, WILL MONITOR FOR CHANGES.
[2021-08-24 04:53] LABS: International Normalized Ratio 1.36
[2021-08-24] MEDS ORDERED: Norco 5-325 Ta1 EACH PO (13:28)
--- NOTE | 2021-08-24 13:49 | NUR ---
DISCHARGE SUMMARY: PT IS VERY PLEASANT AND ENGAGING. EATING, DRINKING, AND VOIDING WELL. MARIO DRAINS HAD MODERATE DRAINAGE. PAIN MANAGED WELL T/O THE SHIFT WITH REPOSITIONING AND MEDICATION PER MAR ORDERS. PT GIVEN DISCHARGE INSTRUCTIONS, SCRIPTS, AND EXTRA GAUZE FOR SHOWERS AND DRESSING CHANGES. ESCORTED OUT TO PRIVATE VEHICLE VIA WHEELCHAIR.
== END 2021-08-24 13:50 | disposition home or self-care (01) ==
LOC: ORSCMMR 07:01 → NM 08:00 → ORSCMMR 08:00 → SURS 13:31 → ORSCMMR 08-24 13:50
PROVIDERS: Surgery
PROC: 07B50ZX Excision of Right Axillary Lymphatic, Open Approach, Diagnostic (ICD-10-PCS; principal; 2021-08-23 09:00)
PROC: 0HBV0ZZ Excision of Bilateral Breast, Open Approach (ICD-10-PCS; principal; 2021-08-23 09:00)
DX: C50.411 Malignant neoplasm of upper-outer quadrant of right female breast (principal); D36.0 Benign neoplasm of lymph nodes; Z17.0 Estrogen receptor positive status [ER+]; G47.33 Obstructive sleep apnea (adult) (pediatric); J45.909 Unspecified asthma, uncomplicated; E66.9 Obesity, unspecified; Z68.38 Body mass index [BMI] 38.0-38.9, adult; E03.9 Hypothyroidism, unspecified; F32.A Depression, unspecified; Z79.899 Other long term (current) drug therapy; K21.9 Gastro-esophageal reflux disease without esophagitis; Z79.01 Long term (current) use of anticoagulants; Z79.02 Long term (current) use of antithrombotics/antiplatelets
CPT/HCPCS: 36415; 38792; 85610; 88307; 88342; 94660; 94762; A9270; A9520; J0690; J1100; J1720; J1885; J2250; J2405; J2704; J3010; J7120; J7512; Q9968

== ENCOUNTER 2021-11-23 13:12 | Day surgery (SDC) | payer BC ==
[~2021-11-23] VITALS: Ht 160 cm; Wt 92.2 kg
== END 2021-11-23 15:24 | disposition home or self-care (01) ==
LOC: ORSCSDS 13:12
DX: R19.4 Change in bowel habit (principal); Z86.010 Personal history of colon polyps; R10.84 Generalized abdominal pain; K31.7 Polyp of stomach and duodenum; K29.70 Gastritis, unspecified, without bleeding; K44.9 Diaphragmatic hernia without obstruction or gangrene; D12.0 Benign neoplasm of cecum; K63.5 Polyp of colon; G47.33 Obstructive sleep apnea (adult) (pediatric); E03.9 Hypothyroidism, unspecified; E78.00 Pure hypercholesterolemia, unspecified; F32.A Depression, unspecified; J45.909 Unspecified asthma, uncomplicated; Z86.718 Personal history of other venous thrombosis and embolism; Z79.01 Long term (current) use of anticoagulants; Z79.899 Other long term (current) drug therapy; Z79.02 Long term (current) use of antithrombotics/antiplatelets
CPT/HCPCS: 88305; 88342; J2704; J7120

== ENCOUNTER 2022-02-01 12:54 | Inpatient (IN) | payer OTHER ==
[~2022-02-01] VITALS: Ht 160 cm; Wt 99.8 kg
[~2022-02-01 12:54] MED LIST changes: +Coumadin2 MG PO; -WARF4 PO
[2022-02-01 13:40] LABS: Hematocrit 34.1 % (33.0-51.0); Hemoglobin 10.9 g/dL (11.5-16.0); Mean Corpuscular HGB 29.7 pg (26.0-34.0); Mean Corpuscular Volume 93 fL (80-100); Mean Platelet Volume 9.3 fL (9.1-12.4); NRBC ABSOLUTE 0.02 K/mm3 (0.00-0.02); NRBC Auto 0.1 /100 WBC (0.0-0.2); Platelet Count 270 K/mm3 (150-400); RDW Coefficient Variation 17.2 % (11.7-14.2); RDW Standard Deviation 58.6 fL (35.1-46.3); Red Blood Cell Count 3.67 M/mm3 (3.80-5.20); White Blood Cell Count 34.06 K/mm3 (4.00-11.30)
[2022-02-01 14:01] LABS: Albumin, Blood 3.7 g/dL (3.4-5.0); Albumin/Globulin Ratio 1.2 (0.8-1.8); Bun/Creatinine Ratio 5.9 (12.0-20.0); Calcium, Blood 7.4 mg/dL (8.5-10.1); Creatinine, Blood 1.02 mg/dL (0.40-1.00); Globulin, Blood 3.2 g/dL (2.2-4.0); Potassium, Blood 3.3 mmol/L (3.5-5.5); Thyroxine (T4) 4.5 ug/dL (4.8-13.9); Total Protein, Blood 6.9 g/dL (6.4-8.2)
[2022-02-01 14:06] LABS: BAND PERCENT MAN 14 % (0-8); BASOPHILS PERCENT MAN 0 % (0-2); EOSINOPHILS ABSOLUTE MAN 1.02 K/mm3 (0.00-0.68); EOSINOPHILS PERCENT MAN 3 % (0-6); LYMPHOCYTES ABSOLUTE MAN 1.02 K/mm3 (0.84-5.20); LYMPHOCYTES PERCENT MAN 3 % (21-46); METAMYELOCYTE ABSOLUTE MAN 0.68 K/mm3 (0.00-0.00); METAMYELOCYTE PERCENT MAN 2 % (0-0); MONOCYTES ABSOLUTE MAN 1.36 K/mm3 (0.16-1.47); MONOCYTES PERCENT MAN 4 % (4-13); NEUTROPHILS ABSOLUTE MAN 29.97 K/mm3 (1.96-9.15); SEG NEUTROPHILS PERCENT MAN 74 % (41-73); TOTAL CELLS COUNTED 100
[2022-02-01 15:43] LABS: Prothrombin Time Results 43.6 Sec (9.7-11.5)
[2022-02-01 15:46] LABS: International Normalized Ratio 4.59
[2022-02-01 16:42] LABS: Source, Urine Clean Catch
[2022-02-01 16:50] LABS: Appearance, Urine Cloudy (Clear); Blood, Urine 1+ (Neg); Color, Urine Amber (P-Yellow); Glucose Qualitative, Urine Neg (Neg); Ketones, Urine 1+ (Neg); Leukocyte Esterase, Urine 3+ (Neg); Nitrite, Urine Neg (Neg); Protein, Urine 2+ (Neg); Urobilinogen, Urine 1+ (Normal)
[2022-02-01 16:59] LABS: Bilirubin, Urine 1+ (Neg)
[2022-02-01 17:01] LABS: Bacteria Many /hpf; Squamous Epithelial Cells Many /hpf (Few)
[2022-02-01 17:02] LABS: Amorphous Light (0-Heavy); Renal Epithelial Few /hpf (0-Rare); Transitional Epithelial Cells Rare /hpf (0-Rare)
[2022-02-01 17:22] LABS: Influenza A, PCR NEGATIVE (NEGATIVE); Influenza B, PCR NEGATIVE (NEGATIVE); Resp Syncytial Virus, PCR NEGATIVE (NEGATIVE); SARS-Cov-2 (COVID-19) PCR, MMC NEGATIVE (NEGATIVE)
[2022-02-01 18:08] LABS: Source, Urine Clean Catch
[2022-02-01 18:14] LABS: Appearance, Urine Clear (Clear); Bilirubin, Urine Neg (Neg); Blood, Urine 2+ (Neg); Color, Urine Yellow (P-Yellow); Glucose Qualitative, Urine Neg (Neg); Ketones, Urine Neg (Neg); Leukocyte Esterase, Urine 2+ (Neg); Nitrite, Urine Neg (Neg); Protein, Urine 2+ (Neg); Urobilinogen, Urine NORM (Normal)
[2022-02-01 18:21] LABS: Renal Epithelial Few /hpf (0-Rare)
[2022-02-01 18:23] LABS: Bacteria Few /hpf; Squamous Epithelial Cells Rare /hpf (Few)
[2022-02-01 20:29] LABS: Free Thyroxine 0.8 ng/dL (0.70-1.60)
[2022-02-01 20:30] LABS: Thyroid Stimulating Hormone 0.984 uIU/mL (0.360-4.800); Triiodothyronine, Free 2.11 pg/mL (2.18-3.98)
[2022-02-01 21:36] LABS: International Normalized Ratio 3.31
[2022-02-01 22:30] LABS: Prothrombin Time Results 32.1 Sec (9.7-11.5)
[2022-02-02 04:30] LABS: BASOPHILS ABSOLUTE AUTO 0.08 K/mm3 (0.00-0.23); BASOPHILS PERCENT AUTO 0 % (0-2); Hematocrit 28.7 % (33.0-51.0); LYMPHOCYTES ABSOLUTE AUTO 0.35 K/mm3 (0.84-5.20); LYMPHOCYTES PERCENT AUTO 1 % (21-46); MONOCYTES ABSOLUTE AUTO 0.16 K/mm3 (0.16-1.47); MONOCYTES PERCENT AUTO 1 % (4-13); Mean Corpuscular HGB 29.5 pg (26.0-34.0); Mean Corpuscular HGB Conc 31.4 g/dL (31.5-36.5); Mean Corpuscular Volume 94 fL (80-100); Mean Platelet Volume 9.8 fL (9.1-12.4); Platelet Count 252 K/mm3 (150-400); RDW Coefficient Variation 17.2 % (11.7-14.2); RDW Standard Deviation 58.7 fL (35.1-46.3); Red Blood Cell Count 3.05 M/mm3 (3.80-5.20); White Blood Cell Count 31.66 K/mm3 (4.00-11.30)
[2022-02-02 04:32] LABS: EOSINOPHILS PERCENT AUTO 0 % (0-6); IMMATURE GRAN ABSOLUTE AUTO 1.04 K/mm3 (0.00-0.10); IMMATURE GRAN PERCENT AUTO 3 % (0-1); NEUTROPHILS ABSOLUTE AUTO 30.03 K/mm3 (1.96-9.15); NEUTROPHILS PERCENT AUTO 95 % (41-73)
[2022-02-02 04:46] LABS: International Normalized Ratio 2.81
[2022-02-02 05:18] LABS: Albumin/Globulin Ratio 1.1 (0.8-1.8); Bilirubin, Total 0.8 mg/dL (0.1-1.0); Bun/Creatinine Ratio 14.8 (12.0-20.0); Calcium, Blood 6.7 mg/dL (8.5-10.1); Creatinine, Blood 0.75 mg/dL (0.40-1.00); Globulin, Blood 2.8 g/dL (2.2-4.0); Magnesium, Blood 0.7 mg/dL (1.6-2.4); Total Protein, Blood 5.8 g/dL (6.4-8.2)
[2022-02-02 05:32] LABS: Prothrombin Time Results 27.6 Sec (9.7-11.5)
--- NOTE | 2022-02-02 06:40 | NUR ---
END OF SHIFT SUMMARY PT WAS A NEW ADMIT WITH SEPSIS SHE WAS UPGRADED TO ICU STATUS AFTER RECIEVING VANC STARTED TO GET FLUSH AND FELT LIKE AIRWAY WAS CLOSING SHE RECIEVED EPI STERIODS AND BENADRIL SHE IS STILL RECIEVING BENADRIL AND STEROIDS. SHE HAD SIGNIFICANT TREMORS WHEN ARIVED THOSE HAVE SUBSIDED AND PT LOOKED AND FELT BETTER BUT SHE JUST CALLED ME AND AND THE TREMORS HAVE STARTED AGAIN AND PT IS SIGNIFICANLY FLUSH BUT NO COMPLAINTS OF TIGHTNESS IN AIRWAY. SHE HAS REMAINED TANIA STABLE THROUOUT SHIFT. SHE HAS 2/2 POSITIVE BLOOD CULTURES GRAM- BACILLI. WILL CONTINUE TO MONITORE AND REOPRT TO DAY RN
--- NOTE | 2022-02-02 09:37 | NUR ---
ASSUMED CARE OF RICHA AT 0700 WITH BEDSIDE REPORT FROM MARTINEZ. PT IS A/O, SITTING UPRIGHT IN BED, VERY CHATTY. DENIES ANY COMPLAINTS AT THIS TIME OTHER THAN PAIN FROM FALL. STATES SHE IS FEELING SO MUCH BETTER SINCE LAST NIGHT'S REACTION TO MEDICATION. SHE TAKES MEDS WITHOUT DIFFICULT, IV'S INFUSING PER ORDERS, PG TO SADIA, PIV BILATERAL. SPOKE TO ON THE PHONE, NOW PLAYING GAMES ON THE BEDSIDE TABLE WITH HIM. SHE IS COMPLAINING OF HUNGER, REQUESTING TO BE FED. NO OTHER ISSUES AT THIS TIME.
--- NOTE | 2022-02-02 10:16 | NUR ---
Pt. is awake in bed and welcomes my visit. Spouse is present. Pt. is pleasant and verbalizes the nature of her hospital admission. Listen empathetically and establish rapport. Pt. displays evidence of being aware and engaged. Prayed with Pt. and spouse. Pt. verbalizes gratitude for the spiritual care visit. Will remain available to Pt. and Spouse.
--- NOTE | 2022-02-02 10:29 | NUR ---
Follow up. Pt. requested that I contact her religion to make them aware that she is in the hospital. Meassage was sent to the religion.
--- NOTE | 2022-02-02 14:37 | NUR ---
PASTOR, NURSE FROM [facility] CALLED FOR UPDATE ON PATIENT, ESSENTIALLY ASKING IF PATIENT IS READY FOR DISCHARGE.
--- NOTE | 2022-02-02 17:34 | NUR ---
RICHA HAS DONE WELL THIS AFTERNOON, PLAYING GAMES WITH HER , EATING HER MEALS, UP TO THE BATHROOM, TOLERATING THE NEW ANTIBIOTICS WELL. SHE HAS USED THE K-PAD FOR BACK PAIN, MEDICATED X2 WITH FENTANYL AND ONCE WITH TYLENOL FOR A HEADACHE WITH GOOD RELIEF, SHE HAS VISITED ON THE PHONE WITH FRIENDS AND FAMILY AND HAD AN ADDITIONAL VISITOR TODAY. SHE IS FEELING GOOD AND IS AGREE- ABLE TO THE CURRENT COURSE OF TREATMENT. SHE WAS MADE AWARE THAT SHE WOULD BE MOVING TO MEDICAL FLOOR AND SHE GOT HERSELF PACKED UP AND READY TO GO. LAMONT RAMOS RN ON MEDICAL FOR REPORT. WILL TRANSFER HER VIA WHEELCHAIR WHEN ABLE.
--- NOTE | 2022-02-02 18:08 | NUR ---
PATIENT ARRIVED TO UNIT VIA W/C. TRANSFERRED INDEPENDENTLY TO BED. A&O X4. LUNGS CLEAR. PATIENT C/O PAIN TO LEFT SIDE OF BACK D/T RECENT FALL. TELE PLACED, SINUS RHYTHM @ 93. ORIENTED TO ROOM & CALL LIGHT, IN REACH. WILL REPORT TO ONCOMING RN.
[2022-02-03] MEDS ORDERED: METF500 PO (01:34)
[2022-02-03] MEDS ORDERED: PILO5 PO (01:42)
[2022-02-03] MEDS ORDERED: MOBIC15 MG PO (01:43)
[2022-02-03] MEDS ORDERED: METO50 PO (01:44)
[2022-02-03] MEDS ORDERED: PANTOPRAZOLE SO40 M2 PO (01:46)
--- NOTE | 2022-02-03 03:29 | NUR ---
PT WOKE UP WITH ALOT OF ANXIETY. HAD CONFUSION OF WHERE SHE WAS AT. STARTED CRYING. CHECKED HER BP AND WAS 152/125. HR: 105. PT CALLED HER TO HAVE HIM COME PICK HER UP. CHARGED NURSE INFORMED PT THAT HE CAN COME TO THE HOSPITAL AND STAY WITH HER. PT TOLD TO COME AND STAY WITH HER AT THE HOSPITAL. THIS RN DID NEURO CHECK ON PT. PUPILS REACTIVE TO LIGHT, PT MORE ALERT NOW AND ORIENTED X 4. DENIES NUMBNESS OR TINGLING IN EXTREMITIES. NOTIFIED DR GARCIA ON PT'S SITUATION. DR. GARCIA ORDERDED 5MG MELATONIN X 1 FOR PT.
[2022-02-03 05:14] LABS: Hematocrit 28.7 % (33.0-51.0); Hemoglobin 8.8 g/dL (11.5-16.0); Mean Corpuscular HGB 28.9 pg (26.0-34.0); Mean Corpuscular HGB Conc 30.7 g/dL (31.5-36.5); Mean Corpuscular Volume 94 fL (80-100); Mean Platelet Volume 10.2 fL (9.1-12.4); Platelet Count 274 K/mm3 (150-400); RDW Coefficient Variation 17.4 % (11.7-14.2); RDW Standard Deviation 60.2 fL (35.1-46.3); Red Blood Cell Count 3.04 M/mm3 (3.80-5.20); White Blood Cell Count 30.06 K/mm3 (4.00-11.30)
[2022-02-03 05:29] LABS: International Normalized Ratio 1.98; Prothrombin Time Results 19.9 Sec (9.7-11.5)
[2022-02-03 05:46] LABS: Magnesium, Blood 1.6 mg/dL (1.6-2.4)
[2022-02-03 05:47] LABS: Albumin, Blood 3.1 g/dL (3.4-5.0); Albumin/Globulin Ratio 1.1 (0.8-1.8); Bilirubin, Total 0.6 mg/dL (0.1-1.0); Bun/Creatinine Ratio 24.3 (12.0-20.0); Calcium, Blood 6.8 mg/dL (8.5-10.1); Creatinine, Blood 0.58 mg/dL (0.40-1.00); Globulin, Blood 2.7 g/dL (2.2-4.0); Potassium, Blood 3.7 mmol/L (3.5-5.5); Total Protein, Blood 5.8 g/dL (6.4-8.2)
--- NOTE | 2022-02-03 07:37 | NUR ---
Shift Summary A&O x 2. VSS. Assist x1 with FWW to bathroom. Hx of falls x 2 nights ago. Does not call or use call light. Bed and chair alarm on.
--- NOTE | 2022-02-03 13:19 | NUR ---
Pt. is awake in bed and welcomes my visit. Pt. is pleasant and is awaiting lab results. Listen empathtically with a calming presence. Re-establish rapport. Pt. displays evidence of being both engaged and aware. Prayed with Pt. Pt. verbalized gratitude for the spiritual care visit.
--- NOTE | 2022-02-03 17:21 | NUR ---
SHIFT SUMMARY PT A&OX4 AND PLEASANT. INDEPENDENT IN ROOM. PT WAS ABLE TO AMBULATE IN HALLS IN THE AFTERNOON AND TOLERATED WELL. PT C/O PAIN IN HER BACK FROM FALL AT HOME. MEDICATED PER EAMR. PT ABLE TO SLEEP FOR A COUPLE HOURS IN THE AM. USES HOME CPAP WHILE SLEEPING. PT HAD FRIENDS AT BEDSIDE. TOLERATED MEALS. NO C/O N/V. USES CALL LIGHT APPROPTIATELY. BED IN LOWEST POSITION AND CALL LIGHT IN REACH.
[2022-02-04 04:36] LABS: BASOPHILS ABSOLUTE AUTO 0.04 K/mm3 (0.00-0.23); BASOPHILS PERCENT AUTO 0 % (0-2); EOSINOPHILS ABSOLUTE AUTO 0.03 K/mm3 (0.00-0.68); EOSINOPHILS PERCENT AUTO 0 % (0-6); Hematocrit 26.9 % (33.0-51.0); Hemoglobin 8.5 g/dL (11.5-16.0); IMMATURE GRAN ABSOLUTE AUTO 0.09 K/mm3 (0.00-0.10); IMMATURE GRAN PERCENT AUTO 1 % (0-1); LYMPHOCYTES ABSOLUTE AUTO 1.23 K/mm3 (0.84-5.20); LYMPHOCYTES PERCENT AUTO 9 % (21-46); MONOCYTES ABSOLUTE AUTO 0.86 K/mm3 (0.16-1.47); MONOCYTES PERCENT AUTO 6 % (4-13); Mean Corpuscular HGB 30.2 pg (26.0-34.0); Mean Corpuscular HGB Conc 31.6 g/dL (31.5-36.5); Mean Corpuscular Volume 96 fL (80-100); Mean Platelet Volume 9.8 fL (9.1-12.4); NEUTROPHILS ABSOLUTE AUTO 11.54 K/mm3 (1.96-9.15); NEUTROPHILS PERCENT AUTO 84 % (41-73); Platelet Count 196 K/mm3 (150-400); RDW Coefficient Variation 17.4 % (11.7-14.2); Red Blood Cell Count 2.81 M/mm3 (3.80-5.20); White Blood Cell Count 13.79 K/mm3 (4.00-11.30)
[2022-02-04 04:51] LABS: International Normalized Ratio 1.51; Prothrombin Time Results 15.4 Sec (9.7-11.5)
[2022-02-04 05:00] LABS: Albumin, Blood 3.1 g/dL (3.4-5.0); Albumin/Globulin Ratio 1.1 (0.8-1.8); Bilirubin, Total 0.6 mg/dL (0.1-1.0); Bun/Creatinine Ratio 15.7 (12.0-20.0); Calcium, Blood 7.3 mg/dL (8.5-10.1); Creatinine, Blood 0.51 mg/dL (0.40-1.00); Globulin, Blood 2.8 g/dL (2.2-4.0); Magnesium, Blood 1.5 mg/dL (1.6-2.4); Potassium, Blood 3.8 mmol/L (3.5-5.5); Total Protein, Blood 5.9 g/dL (6.4-8.2)
--- NOTE | 2022-02-04 06:44 | NUR ---
SHIFT SUMMARY A&O X 4. VSS. SPOUSE AT BEDSIDE BEGINNING OF SHIFT. PT'S ANXIETY HAS DECREASED. REFUSED SCHEDULED MIDNIGHT BENADRYL. PT STARTLED EASILY WHEN WOKEN UP BY THIS RN TO GIVE HER MEDS. INDEPENDENT IN ROOM. MIDLINE TO L FOREARM PATENT WITH NS INFUSING AT 100ML/HR.
--- NOTE | 2022-02-04 16:42 | NUR ---
SHIFT SUMMARY PATIENT IS ALERT AND ORIENTED. PATIENT HAS HAD NO ACUTE EVENTS THIS SHIFT. VITAL SIGNS REVIEWED. PATIENT HAS NOT COMPLAINED OF SOB, NAUSEA OR VOMITTING. PATIENT HAS REPORTED PAIN, MEDICATED PER EMAR. PATIENT HAS BEEN IND IN ROOM. BED IN LOCKED AND LOWEST POSITION. CALL LIGHT IN PLACE. WILL MONITOR UNTIL SHIFT CHANGE.
[2022-02-05 04:56] LABS: Hematocrit 29.4 % (33.0-51.0); Hemoglobin 8.9 g/dL (11.5-16.0); Mean Corpuscular HGB 29.2 pg (26.0-34.0); Mean Corpuscular HGB Conc 30.3 g/dL (31.5-36.5); Mean Corpuscular Volume 96 fL (80-100); Mean Platelet Volume 9.6 fL (9.1-12.4); NRBC ABSOLUTE 0.06 K/mm3 (0.00-0.02); NRBC Auto 0.7 /100 WBC (0.0-0.2); Platelet Count 265 K/mm3 (150-400); RDW Coefficient Variation 17.2 % (11.7-14.2); RDW Standard Deviation 60.3 fL (35.1-46.3); Red Blood Cell Count 3.05 M/mm3 (3.80-5.20)
[2022-02-05 05:46] LABS: International Normalized Ratio 1.29; Prothrombin Time Results 13.3 Sec (9.7-11.5)
[2022-02-05 05:48] LABS: Albumin, Blood 3.1 g/dL (3.4-5.0); Albumin/Globulin Ratio 1.1 (0.8-1.8); Bilirubin, Total 0.4 mg/dL (0.1-1.0); Bun/Creatinine Ratio 10.8 (12.0-20.0); Calcium, Blood 7.9 mg/dL (8.5-10.1); Creatinine, Blood 0.46 mg/dL (0.40-1.00); Globulin, Blood 2.9 g/dL (2.2-4.0); Magnesium, Blood 1.9 mg/dL (1.6-2.4); Potassium, Blood 3.4 mmol/L (3.5-5.5)
--- NOTE | 2022-02-05 06:41 | NUR ---
SHIFT SUMMARY ALERT AND ORIENTED X4. VSS. PLEASANT AND COOPERATIVE WITH CARE. PAIN MANAGED WITH PRN NORCO AND FLEXERIL. INDEPENDENT IN ROOM. SLEEPING IN BETWEEN CARE. USES CPAP AT NIGHT.
[2022-02-05] MEDS ORDERED: AMOCLA875 PO (10:32)
[2022-02-05] MEDS ORDERED: DIFLUCAN100 MG PO (10:33)
[2022-02-05] MEDS ORDERED: CLOP75 PO (10:35)
[2022-02-05] MEDS ORDERED: Prednisone10 MG PO (10:35)
[2022-02-05] MEDS ORDERED: LIOT5 PO (10:36)
--- NOTE | 2022-02-05 11:32 | NUR ---
SHIFT SUMMARY PTN A&O AT TIME OF ASSESS. C/O LOWER BACK PAIN THAT HAS BEEN PRESENT SINCE A FALL SHE HAD. SHE IS DISCHARGING HOME TODAY. DISCHARGE PAPERWORK WAS REVIEWED WITH THE PTN, TO INCLUDE MEDICATION MGT. MEDICATIONS FAXED TO PHARMACY. PRESENT. PTN ESCORTED BY WC TO EXIT BY AUDRA WEINER.
[2022-02-06] MEDS ORDERED: Robaxin750 MG PO (07:56)
== END 2022-02-05 11:45 | disposition home or self-care (01) | DRG 871 ==
LOC: ER 12:54 → MEDS 20:06 → ICUW 20:06 → MEDS 02-02 17:55
PROVIDERS: Internal Medicine; Physician Assistant; Student in an Organized Health Care Education/Training Program; ADMIT Internal Medicine
DX: A41.51 Sepsis due to Escherichia coli [E. coli] (principal); R65.21 Severe sepsis with septic shock; D68.59 Other primary thrombophilia; D84.9 Immunodeficiency, unspecified; N39.0 Urinary tract infection, site not specified; E83.42 Hypomagnesemia; E03.9 Hypothyroidism, unspecified; E66.01 Morbid (severe) obesity due to excess calories; M06.9 Rheumatoid arthritis, unspecified; M32.9 Systemic lupus erythematosus, unspecified; Z20.822 Contact with and (suspected) exposure to COVID-19; K21.9 Gastro-esophageal reflux disease without esophagitis; J45.20 Mild intermittent asthma, uncomplicated; E87.6 Hypokalemia; M79.7 Fibromyalgia; G47.33 Obstructive sleep apnea (adult) (pediatric); Z96.653 Presence of artificial knee joint, bilateral; Z90.710 Acquired absence of both cervix and uterus; Z98.890 Other specified postprocedural states; Z90.722 Acquired absence of ovaries, bilateral; Z88.1 Allergy status to other antibiotic agents; Z88.8 Allergy status to other drugs, medicaments and biological substances; Z91.041 Radiographic dye allergy status; Z91.048 Other nonmedicinal substance allergy status; Z79.899 Other long term (current) drug therapy; Z79.01 Long term (current) use of anticoagulants; Z79.02 Long term (current) use of antithrombotics/antiplatelets; Z79.52 Long term (current) use of systemic steroids; Z79.891 Long term (current) use of opiate analgesic; Z86.718 Personal history of other venous thrombosis and embolism; Z86.711 Personal history of pulmonary embolism; Z85.3 Personal history of malignant neoplasm of breast; Z89.412 Acquired absence of left great toe; Z90.13 Acquired absence of bilateral breasts and nipples
CPT/HCPCS: 0241U; 36415; 70486; 71046; 71250; 74176; 80053; 81001; 82947; 83605; 83735; 83880; 84145; 84436; 84439; 84443; 84481; 84484; 85025; 85027; 85610; 87040; 87077; 87086; 87185; 87186; 93005; 93010; 94660; 94762; 96365; 96366; 96367; 96372-59; 96375; 96376; 99285-25; A9270; C1751; J0171; J0692; J1200; J1720; J2270; J2405; J2543; J2930; J3010; J3370; J3475; J7030

== ENCOUNTER 2022-02-06 03:02 | Emergency (ER) | payer OTHER ==
[~2022-02-06] VITALS: Ht 160 cm; Wt 95.2 kg
[~2022-02-06 03:02] MED LIST changes: +AMOCLA875 PO; +DIFLUCAN100 MG PO; +METO50 PO
[2022-02-06] MEDS ORDERED: Robaxin750 MG PO (07:56)
== END 2022-02-06 08:05 | disposition home or self-care (01) ==
LOC: ER 03:02
DX: M62.830 Muscle spasm of back (principal); E03.9 Hypothyroidism, unspecified; Z88.1 Allergy status to other antibiotic agents; Z88.8 Allergy status to other drugs, medicaments and biological substances; Z91.09 Other allergy status, other than to drugs and biological substances; Z79.01 Long term (current) use of anticoagulants; Z79.899 Other long term (current) drug therapy; Z79.84 Long term (current) use of oral hypoglycemic drugs; Z79.890 Hormone replacement therapy; Z79.52 Long term (current) use of systemic steroids
CPT/HCPCS: A9270; J1885

== ENCOUNTER 2022-07-13 22:54 | Emergency (ER) | payer OTHER ==
[~2022-07-13] VITALS: Ht 162.6 cm; Wt 104.3 kg
[~2022-07-13 22:54] MED LIST changes: +Robaxin750 MG PO
[2022-07-13 23:18] LABS: BASOPHILS ABSOLUTE AUTO 0.03 K/mm3 (0.00-0.23); BASOPHILS PERCENT AUTO 0 % (0-2); EOSINOPHILS ABSOLUTE AUTO 0.08 K/mm3 (0.00-0.68); EOSINOPHILS PERCENT AUTO 1 % (0-6); Hematocrit 39.3 % (33.0-51.0); Hemoglobin 13.8 g/dL (11.5-16.0); IMMATURE GRAN ABSOLUTE AUTO 0.02 K/mm3 (0.00-0.10); IMMATURE GRAN PERCENT AUTO 0 % (0-1); LYMPHOCYTES ABSOLUTE AUTO 1.07 K/mm3 (0.84-5.20); LYMPHOCYTES PERCENT AUTO 15 % (21-46); MONOCYTES ABSOLUTE AUTO 0.85 K/mm3 (0.16-1.47); MONOCYTES PERCENT AUTO 12 % (4-13); Mean Corpuscular HGB 35.7 pg (26.0-34.0); Mean Corpuscular HGB Conc 35.1 g/dL (31.5-36.5); Mean Corpuscular Volume 102 fL (80-100); Mean Platelet Volume 9.5 fL (9.1-12.4); NEUTROPHILS ABSOLUTE AUTO 5.25 K/mm3 (1.96-9.15); NEUTROPHILS PERCENT AUTO 72 % (41-73); Platelet Count 199 K/mm3 (150-400); RDW Coefficient Variation 14.6 % (11.7-14.2); RDW Standard Deviation 53.2 fL (35.1-46.3); Red Blood Cell Count 3.87 M/mm3 (3.80-5.20)
[2022-07-13 23:33] LABS: International Normalized Ratio 2.85; Prothrombin Time Results 28.2 Sec (9.7-11.5)
[2022-07-13 23:34] LABS: Bun/Creatinine Ratio 12.9 (12.0-20.0); Calcium, Blood 8.4 mg/dL (8.5-10.1); Creatinine, Blood 0.7 mg/dL (0.40-1.00)
[2022-07-14 01:30] VITALS: BP 115/78
== END 2022-07-14 01:36 | disposition home or self-care (01) ==
LOC: ER 22:54
PROVIDERS: Student in an Organized Health Care Education/Training Program
DX: R41.82 Altered mental status, unspecified (principal); T42.8X5A Adverse effect of antiparkinsonism drugs and other central muscle-tone depressants, initial encounter; Z88.8 Allergy status to other drugs, medicaments and biological substances; Z88.1 Allergy status to other antibiotic agents; Z91.048 Other nonmedicinal substance allergy status; Z79.899 Other long term (current) drug therapy; Z79.01 Long term (current) use of anticoagulants; Z79.84 Long term (current) use of oral hypoglycemic drugs; Z79.52 Long term (current) use of systemic steroids; Z85.3 Personal history of malignant neoplasm of breast; M06.9 Rheumatoid arthritis, unspecified; E03.9 Hypothyroidism, unspecified; J45.909 Unspecified asthma, uncomplicated; G47.33 Obstructive sleep apnea (adult) (pediatric)
CPT/HCPCS: 36415; 70450; 80048; 85025; 85610; 93005; 93010; 99285-25

== ENCOUNTER → 2022-09-01 | Outpatient (CLI) | payer OTHER | LOC: LAB SHORT 11:30 → LAB 11:30 | DX: R39.0 Extravasation of urine (principal) | CPT/HCPCS: 87077; 87086; 87186 ==

== ENCOUNTER 2022-10-21 10:28 | Inpatient (IN) | payer OTHER ==
[~2022-10-21] VITALS: Ht 160 cm; Wt 105.5 kg
[2022-10-21 12:02] LABS: BASOPHILS ABSOLUTE AUTO 0.12 K/mm3 (0.00-0.23); BASOPHILS PERCENT AUTO 1 % (0-2); EOSINOPHILS PERCENT AUTO 1 % (0-6); Hematocrit 39.9 % (33.0-51.0); Hemoglobin 14.3 g/dL (11.5-16.0); IMMATURE GRAN ABSOLUTE AUTO 0.14 K/mm3 (0.00-0.10); IMMATURE GRAN PERCENT AUTO 1 % (0-1); LYMPHOCYTES ABSOLUTE AUTO 0.42 K/mm3 (0.84-5.20); LYMPHOCYTES PERCENT AUTO 2 % (21-46); MONOCYTES ABSOLUTE AUTO 1.54 K/mm3 (0.16-1.47); MONOCYTES PERCENT AUTO 8 % (4-13); Mean Corpuscular HGB 36.6 pg (26.0-34.0); Mean Corpuscular HGB Conc 35.8 g/dL (31.5-36.5); Mean Corpuscular Volume 102 fL (80-100); Mean Platelet Volume 10.8 fL (9.1-12.4); NEUTROPHILS PERCENT AUTO 88 % (41-73); Platelet Count 78 K/mm3 (150-400); RDW Coefficient Variation 13.2 % (11.7-14.2); RDW Standard Deviation 49.9 fL (35.1-46.3); Red Blood Cell Count 3.91 M/mm3 (3.80-5.20); White Blood Cell Count 19.22 K/mm3 (4.00-11.30)
[2022-10-21 12:18] LABS: International Normalized Ratio 2.3
[2022-10-21 12:21] LABS: Albumin, Blood 3.3 g/dL (3.4-5.0); Bilirubin, Total 0.7 mg/dL (0.1-1.0); Bun/Creatinine Ratio 15.5 (12.0-20.0); Calcium, Blood 8.5 mg/dL (8.5-10.1); Creatinine, Blood 1.16 mg/dL (0.40-1.00); Globulin, Blood 3.4 g/dL (2.2-4.0); Potassium, Blood 2.7 mmol/L (3.5-5.5); Total Protein, Blood 6.7 g/dL (6.4-8.2)
[2022-10-21 14:34] LABS: Source, Urine Clean Catch
[2022-10-21 14:42] LABS: Appearance, Urine Hazy (Clear); Bilirubin, Urine Neg (Neg); Blood, Urine 4+ (Neg); Glucose Qualitative, Urine Neg (Neg); Ketones, Urine Neg (Neg); Leukocyte Esterase, Urine 3+ (Neg); Nitrite, Urine Neg (Neg); Protein, Urine 3+ (Neg); Urobilinogen, Urine NORM (Normal)
[2022-10-21 15:00] LABS: Color, Urine Pale Yellow (P-Yellow)
[2022-10-21 15:05] LABS: Bacteria Many /hpf; Mucus Light (0-Heavy); Squamous Epithelial Cells Mod /hpf (Few); Transitional Epithelial Cells Rare /hpf (0-Rare); White Blood Cells, Urine TNTC /hpf (0-5)
--- NOTE | 2022-10-21 16:52 | NUR ---
PT CHART REVIEWED FOR ADMISSION
[2022-10-21 18:42] VITALS: BP 113/71
--- NOTE | 2022-10-21 19:29 | NUR ---
PT ADMITTED AT 1835 FROM ED FROM STRETCHER, AMBULATED TO BED STEADY ON FEET. A/O X4. ORIENTED TO ROOM SET UP AND CALL LIGHT. VSS. CONNECTED TO IVF AND SECURED IV WITH TAPE. PT DENIES CHEST PAIN OR PRESSUES CURRENTLY. LUNGS ARE CLEAR. 94% ROOM AIR. PLANS TO BRING PT'S CPAP IN TONIGHT. RECEIVED ORAL POTASSIUM AND COUMADIN DOSE. REPORT GIVEN TO CHRIS AT 1945 TO DO ADMIT HX
[2022-10-21 19:53] LABS: Bun/Creatinine Ratio 15.2 (12.0-20.0); Calcium, Blood 7.6 mg/dL (8.5-10.1); Creatinine, Blood 1.05 mg/dL (0.40-1.00); Potassium, Blood 3.9 mmol/L (3.5-5.5)
[2022-10-21 21:30] VITALS: BP 111/79
[2022-10-22 04:24] VITALS: BP 117/84
[2022-10-22 05:16] LABS: BASOPHILS ABSOLUTE AUTO 0.04 K/mm3 (0.00-0.23); BASOPHILS PERCENT AUTO 0 % (0-2); EOSINOPHILS ABSOLUTE AUTO 0.03 K/mm3 (0.00-0.68); EOSINOPHILS PERCENT AUTO 0 % (0-6); Hematocrit 34.4 % (33.0-51.0); IMMATURE GRAN ABSOLUTE AUTO 0.32 K/mm3 (0.00-0.10); IMMATURE GRAN PERCENT AUTO 2 % (0-1); LYMPHOCYTES ABSOLUTE AUTO 0.52 K/mm3 (0.84-5.20); LYMPHOCYTES PERCENT AUTO 3 % (21-46); MONOCYTES PERCENT AUTO 5 % (4-13); Mean Corpuscular HGB Conc 34.9 g/dL (31.5-36.5); Mean Corpuscular Volume 103 fL (80-100); Mean Platelet Volume 10.9 fL (9.1-12.4); NEUTROPHILS ABSOLUTE AUTO 16.24 K/mm3 (1.96-9.15); NEUTROPHILS PERCENT AUTO 90 % (41-73); Platelet Count 83 K/mm3 (150-400); RDW Coefficient Variation 13.2 % (11.7-14.2); RDW Standard Deviation 50.2 fL (35.1-46.3); Red Blood Cell Count 3.33 M/mm3 (3.80-5.20); White Blood Cell Count 17.95 K/mm3 (4.00-11.30)
[2022-10-22 05:23] LABS: International Normalized Ratio 2.68; Prothrombin Time Results 26.6 Sec (9.7-11.5)
--- NOTE | 2022-10-22 05:23 | NUR ---
PT SITTING UP DURING BEDSIDE REPORT- PT DENIES PAIN SOB- PT REPORTS THAT HER RAN HOME TO GET HER CPAP- PER PT MOJGAN SHOULD BE BACK SOON- PT TOOK HS SCHEDULED MEDS WITHOUT PROBLEMS, IV INFUSING WITHOUT PROBLEMS, PT REQUESTED HOME MED AMITRIPYLINE AND FLEXERIL, CALL TO [facility]E SENIOR CYBER INTELLIGENCE ANALYST - NEW ORDER AND GIVEN TO PT OF AMITRIPYLINE AND FLEXERIL-CALL FROM LAB AND 3 OF THE BLOOD CULTURES ARE GROWNING GRAM NEG BACILLI- WILL NOTIFY HOSPITALIST
[2022-10-22 05:43] LABS: Albumin, Blood 2.8 g/dL (3.4-5.0); Albumin/Globulin Ratio 0.9 (0.8-1.8); Bilirubin, Total 0.4 mg/dL (0.1-1.0); Bun/Creatinine Ratio 18.6 (12.0-20.0); Calcium, Blood 7.6 mg/dL (8.5-10.1); Creatinine, Blood 1.02 mg/dL (0.40-1.00); Globulin, Blood 3.2 g/dL (2.2-4.0); Potassium, Blood 4.1 mmol/L (3.5-5.5)
[2022-10-22 08:26] VITALS: BP 112/77
--- NOTE | 2022-10-22 09:00 | NUR ---
pt laying in bed awake, a/ox4, pleasant and coopertive with care, follows commands well, denies pain, states she's doing ok, lungs are clear dim in bases, resp even and unlabored, no cough noted, hrr, no edema noted, ppp+2, cap refill <3sec, vs stable, afebrile, iv site to ynes is clear and patent, btx4, abd round soft nontender, voids without diff, skin c/w/d, maew, erinn, call light in reach.
[2022-10-22 16:22] VITALS: BP 119/78
--- NOTE | 2022-10-22 18:16 | NUR ---
pt has been getting up to the bathroom indep, family in room at this time, no complaints or acute changes this shift. call light in reach.
[2022-10-22 19:49] VITALS: BP 125/86
[2022-10-23 02:58] VITALS: BP 141/89
--- NOTE | 2022-10-23 04:13 | NUR ---
SHIFT SUMMARY PATIENT ALERT, BRIGHT AFFECT. C/O LUMBAR PAIN/SPASM, TOLERATED PRN FLEXERIL WELL. PATIENT REQUESTED TO HAVE PRN TYLENOL ADDED, PROVIDER NOTIFIED AND RECEIVED NEW ORDER FOR PRN TYLENOL. INDEPENDANT IN ROOM. PATIENT EDUCATED ON FIRE SAFETY AND RISK OF INJURY R/T OXYGEN USE, VERBALIZED UNDERSTANDING, DENIES SMOKING NOR HAVING ACCESS TO ANY SOURCES OF IGNITION. NO ACUTE CHANGES OVERNIGHT. BED LOW, CALL LIGHT WITHIN REACH.
[2022-10-23 05:09] LABS: BASOPHILS ABSOLUTE AUTO 0.04 K/mm3 (0.00-0.23); BASOPHILS PERCENT AUTO 0 % (0-2); EOSINOPHILS ABSOLUTE AUTO 0.08 K/mm3 (0.00-0.68); EOSINOPHILS PERCENT AUTO 1 % (0-6); Hematocrit 34.5 % (33.0-51.0); Hemoglobin 12.1 g/dL (11.5-16.0); IMMATURE GRAN ABSOLUTE AUTO 0.12 K/mm3 (0.00-0.10); IMMATURE GRAN PERCENT AUTO 1 % (0-1); LYMPHOCYTES ABSOLUTE AUTO 0.89 K/mm3 (0.84-5.20); LYMPHOCYTES PERCENT AUTO 6 % (21-46); MONOCYTES PERCENT AUTO 12 % (4-13); Mean Corpuscular HGB 35.9 pg (26.0-34.0); Mean Corpuscular HGB Conc 35.1 g/dL (31.5-36.5); Mean Corpuscular Volume 102 fL (80-100); Mean Platelet Volume 10.7 fL (9.1-12.4); NEUTROPHILS ABSOLUTE AUTO 12.12 K/mm3 (1.96-9.15); NEUTROPHILS PERCENT AUTO 81 % (41-73); Platelet Count 141 K/mm3 (150-400); RDW Coefficient Variation 13.3 % (11.7-14.2); RDW Standard Deviation 50.3 fL (35.1-46.3); Red Blood Cell Count 3.37 M/mm3 (3.80-5.20); White Blood Cell Count 15.05 K/mm3 (4.00-11.30)
[2022-10-23 05:23] LABS: International Normalized Ratio 2.35; Prothrombin Time Results 23.5 Sec (9.7-11.5)
[2022-10-23 05:52] LABS: Bun/Creatinine Ratio 18.3 (12.0-20.0); Calcium, Blood 7.8 mg/dL (8.5-10.1); Creatinine, Blood 1.04 mg/dL (0.40-1.00); Potassium, Blood 3.2 mmol/L (3.5-5.5)
--- NOTE | 2022-10-23 07:49 | NUR ---
pt laying in bed with eyes closed, wakes easily, a/ox4, pleasant and coopertive with care, follows commands well, lungs are clear t/o, on r/a durring the day, cpap at hs, hrr, no edema noted, ppp+2, cap refill <3 sec, vs sable afebrile, piv is clear and patent, btx4, abd round soft nontender, voids without diff, skin c/w/d, face is flushed, maew, erinn, call light in reach.
[2022-10-23 07:54] VITALS: BP 118/86
[2022-10-23 16:05] VITALS: BP 130/98
--- NOTE | 2022-10-23 18:33 | NUR ---
pt doing ok, no complaints, spouce in room with her, restarted her fluids, no further changes this shift. call light in reach.
[2022-10-23 19:22] VITALS: BP 139/82
--- NOTE | 2022-10-24 04:02 | NUR ---
SHIFT SUMMARY PATIENT ALERT, PLEASANT AFFECT. NO COMPLAINTS STATED AT TIME OF ASSESSMENT. LUNGS CTA, SPO2 94% ON RA. CONTINUES ON NS INFUSION AT 125mL/HR. INDEPENDANT IN ROOM. NO ACUTE CHANGES OVERNIGHT. PATIENT REMINDED OF FIRE SAFETY AND RISK OF INJURY R/T OXYGEN USE, VERBALIZED UNDERSTANDING, DENIES SMOKING NOR ACCESS TO ANY SOURCES OF IGNITION. BED LOW, CALL LIGHT WITHIN REACH.
[2022-10-24 04:52] VITALS: BP 117/79
[2022-10-24 05:10] LABS: BASOPHILS ABSOLUTE AUTO 0.04 K/mm3 (0.00-0.23); BASOPHILS PERCENT AUTO 0 % (0-2); EOSINOPHILS PERCENT AUTO 1 % (0-6); Hemoglobin 12.3 g/dL (11.5-16.0); IMMATURE GRAN ABSOLUTE AUTO 0.12 K/mm3 (0.00-0.10); IMMATURE GRAN PERCENT AUTO 1 % (0-1); LYMPHOCYTES ABSOLUTE AUTO 1.41 K/mm3 (0.84-5.20); LYMPHOCYTES PERCENT AUTO 11 % (21-46); MONOCYTES ABSOLUTE AUTO 1.31 K/mm3 (0.16-1.47); MONOCYTES PERCENT AUTO 10 % (4-13); Mean Corpuscular HGB 36.1 pg (26.0-34.0); Mean Corpuscular HGB Conc 35.1 g/dL (31.5-36.5); Mean Corpuscular Volume 103 fL (80-100); Mean Platelet Volume 10.3 fL (9.1-12.4); NEUTROPHILS ABSOLUTE AUTO 10.19 K/mm3 (1.96-9.15); NEUTROPHILS PERCENT AUTO 77 % (41-73); Platelet Count 191 K/mm3 (150-400); RDW Coefficient Variation 13.2 % (11.7-14.2); RDW Standard Deviation 50.2 fL (35.1-46.3); Red Blood Cell Count 3.41 M/mm3 (3.80-5.20); White Blood Cell Count 13.17 K/mm3 (4.00-11.30)
[2022-10-24 05:15] LABS: International Normalized Ratio 2.7; Prothrombin Time Results 26.8 Sec (9.7-11.5)
[2022-10-24 06:05] LABS: Bilirubin, Total 0.4 mg/dL (0.1-1.0); Bun/Creatinine Ratio 13.5 (12.0-20.0); Calcium, Blood 8.2 mg/dL (8.5-10.1); Creatinine, Blood 1.04 mg/dL (0.40-1.00); Magnesium, Blood 2.1 mg/dL (1.6-2.4); Potassium, Blood 3.2 mmol/L (3.5-5.5)
[2022-10-24 07:41] VITALS: BP 117/91
[2022-10-24 10:12] VITALS: BP 108/74
--- NOTE | 2022-10-24 15:41 | NUR ---
Pt. is awake in bed and welcome smy visit. Spouse is present. Pt. is pleasant and verbalizes that she anticipates staying overnight one more night before discharge tomorrow. Listen with interest and empathy. Pt. displays evidence of engagement and awareness. Prayed with Pt. Pt. verbalized gratitude for the spiritual care visit.
[2022-10-24 16:49] VITALS: BP 116/91
--- NOTE | 2022-10-24 18:12 | NUR ---
PATIENT IS ALERT AND ORIENTED AND COOPERATIVE WITH CARE. PATIENT C/O NEW LEFT ELBOW PAIN THIS AFTERNOON. IV FLUIDS RUNNING AT 125/HR. PATIENT'S IS AT THE BEDSIDE. PATIENT IS INDEPENDENT IN THE ROOM. PLAN IS FOR DC HOME TOMORROW. WILL CONTINUE TO MONITOR
[2022-10-24 19:41] VITALS: BP 120/87
[2022-10-24] MEDS ORDERED: ESZO3 PO (19:47)
[2022-10-24] MEDS ORDERED: Crestor20 MG PO (19:47)
[2022-10-24] MEDS ORDERED: PRED5 PO (19:48)
[2022-10-25 04:31] VITALS: BP 119/81
[2022-10-25 05:02] LABS: International Normalized Ratio 2.7; Prothrombin Time Results 26.8 Sec (9.7-11.5)
--- NOTE | 2022-10-25 06:13 | NUR ---
PATIENT REMIANS ALERT AND ORIENTED X4, COOPERATIVE WITH CARE. VSS, SLEPT WELL THROUGH THE NIGHT. GOOD U/O, IV SALINE LOCKED. NO OTHER ISSUES TO REPORT.
[2022-10-25 06:37] LABS: BASOPHILS ABSOLUTE AUTO 0.05 K/mm3 (0.00-0.23); BASOPHILS PERCENT AUTO 0 % (0-2); EOSINOPHILS PERCENT AUTO 1 % (0-6); Hematocrit 38.3 % (33.0-51.0); Hemoglobin 13.2 g/dL (11.5-16.0); IMMATURE GRAN ABSOLUTE AUTO 0.19 K/mm3 (0.00-0.10); IMMATURE GRAN PERCENT AUTO 1 % (0-1); LYMPHOCYTES ABSOLUTE AUTO 1.94 K/mm3 (0.84-5.20); LYMPHOCYTES PERCENT AUTO 13 % (21-46); MONOCYTES ABSOLUTE AUTO 1.17 K/mm3 (0.16-1.47); MONOCYTES PERCENT AUTO 8 % (4-13); Mean Corpuscular HGB 36.4 pg (26.0-34.0); Mean Corpuscular HGB Conc 34.5 g/dL (31.5-36.5); Mean Corpuscular Volume 106 fL (80-100); Mean Platelet Volume 10.6 fL (9.1-12.4); NEUTROPHILS ABSOLUTE AUTO 11.76 K/mm3 (1.96-9.15); NEUTROPHILS PERCENT AUTO 77 % (41-73); Platelet Count 290 K/mm3 (150-400); RDW Coefficient Variation 13.7 % (11.7-14.2); RDW Standard Deviation 53.2 fL (35.1-46.3); Red Blood Cell Count 3.63 M/mm3 (3.80-5.20); White Blood Cell Count 15.31 K/mm3 (4.00-11.30)
[2022-10-25 06:51] LABS: Albumin, Blood 3.3 g/dL (3.4-5.0); Bilirubin, Total 0.3 mg/dL (0.1-1.0); Bun/Creatinine Ratio 12.3 (12.0-20.0); Calcium, Blood 8.2 mg/dL (8.5-10.1); Creatinine, Blood 1.14 mg/dL (0.40-1.00); Globulin, Blood 3.3 g/dL (2.2-4.0); Potassium, Blood 3.5 mmol/L (3.5-5.5); Total Protein, Blood 6.6 g/dL (6.4-8.2)
[2022-10-25 08:15] VITALS: BP 114/90
[2022-10-25 10:03] VITALS: BP 113/83
[2022-10-25 13:25] LABS: Bun/Creatinine Ratio 11.9 (12.0-20.0); Calcium, Blood 8.3 mg/dL (8.5-10.1); Creatinine, Blood 1.01 mg/dL (0.40-1.00); Potassium, Blood 3.1 mmol/L (3.5-5.5)
[2022-10-25] MEDS ORDERED: VISBIOME 112.51 EACH PO (13:39)
[2022-10-25] MEDS ORDERED: CEFD300 PO (13:40)
[2022-10-25] MEDS ORDERED: Diflucan150 MG PO (13:41)
== END 2022-10-25 15:21 | disposition home or self-care (01) | DRG 871 ==
LOC: ER 10:28 → MEDS 16:13 → ENPENDDIS 10-25 13:57 → MEDS 10-25 15:21
PROVIDERS: Emergency Medicine; Family Medicine; Physician Assistant; ADMIT Hospitalist
DX: A41.51 Sepsis due to Escherichia coli [E. coli] (principal); J96.01 Acute respiratory failure with hypoxia; N17.9 Acute kidney failure, unspecified; E87.1 Hypo-osmolality and hyponatremia; D84.821 Immunodeficiency due to drugs; Z68.41 Body mass index [BMI] 40.0-44.9, adult; N12 Tubulo-interstitial nephritis, not specified as acute or chronic; R65.20 Severe sepsis without septic shock; E83.42 Hypomagnesemia; E87.6 Hypokalemia; B00.9 Herpesviral infection, unspecified; K21.9 Gastro-esophageal reflux disease without esophagitis; E03.9 Hypothyroidism, unspecified; E66.9 Obesity, unspecified; M79.7 Fibromyalgia; G89.29 Other chronic pain; M25.522 Pain in left elbow; G47.33 Obstructive sleep apnea (adult) (pediatric); L93.0 Discoid lupus erythematosus; M06.9 Rheumatoid arthritis, unspecified; R23.2 Flushing; I73.9 Peripheral vascular disease, unspecified; J45.20 Mild intermittent asthma, uncomplicated; Z96.653 Presence of artificial knee joint, bilateral; Z96.643 Presence of artificial hip joint, bilateral; Z88.1 Allergy status to other antibiotic agents; Z91.041 Radiographic dye allergy status; Z88.8 Allergy status to other drugs, medicaments and biological substances; Z79.01 Long term (current) use of anticoagulants; Z79.899 Other long term (current) drug therapy; Z79.84 Long term (current) use of oral hypoglycemic drugs; Z79.890 Hormone replacement therapy; Z86.718 Personal history of other venous thrombosis and embolism; Z86.711 Personal history of pulmonary embolism; Z86.19 Personal history of other infectious and parasitic diseases; Z90.710 Acquired absence of both cervix and uterus; Z98.890 Other specified postprocedural states; Z89.412 Acquired absence of left great toe; Z90.722 Acquired absence of ovaries, bilateral; Z90.12 Acquired absence of left breast and nipple; Z79.02 Long term (current) use of antithrombotics/antiplatelets; Z85.3 Personal history of malignant neoplasm of breast
CPT/HCPCS: 36415; 71260; 73070; 74176; 80048; 80053; 81001; 83605; 83735; 83880; 84443; 84484; 85025; 85379; 85610; 87040; 87077; 87086; 87186; 93005; 93010; 94640; 94660; 94664; 94762; 96365-59; 96366; 96366-59; 96367; 96368; 96375-59; 99285-25; A9270; G0378; J0696; J1200; J2405; J2930; J3475; J3480; J7030; J7040; J7512; Q9967

== ENCOUNTER 2022-12-24 09:05 | Emergency (ER) | payer OTHER ==
[~2022-12-24] VITALS: Ht 160 cm; Wt 104.3 kg
[~2022-12-24 09:05] MED LIST changes: +CEFD300 PO; +Crestor20 MG PO; +Diflucan150 MG PO; +VISBIOME 112.51 EACH PO
[2022-12-24 10:25] LABS: Source, Urine Clean Catch
[2022-12-24 10:34] LABS: Appearance, Urine Clear (Clear); Bilirubin, Urine Neg (Neg); Blood, Urine Neg (Neg); Color, Urine Yellow (P-Yellow); Glucose Qualitative, Urine Neg (Neg); Ketones, Urine Neg (Neg); Leukocyte Esterase, Urine 2+ (Neg); Nitrite, Urine Neg (Neg); Protein, Urine Neg (Neg); Urobilinogen, Urine NORM (Normal)
[2022-12-24 10:40] LABS: Bacteria Rare /hpf; Red Blood Cells, Urine 0-2 /hpf (0-2); Squamous Epithelial Cells Few /hpf (Few); Transitional Epithelial Cells Rare /hpf (0-Rare)
[2022-12-24 11:04] LABS: BASOPHILS ABSOLUTE AUTO 0.08 K/mm3 (0.00-0.23); BASOPHILS PERCENT AUTO 1 % (0-2); EOSINOPHILS ABSOLUTE AUTO 0.25 K/mm3 (0.00-0.68); EOSINOPHILS PERCENT AUTO 3 % (0-6); Hematocrit 39.9 % (33.0-51.0); Hemoglobin 13.8 g/dL (11.5-16.0); IMMATURE GRAN ABSOLUTE AUTO 0.05 K/mm3 (0.00-0.10); IMMATURE GRAN PERCENT AUTO 1 % (0-1); LYMPHOCYTES ABSOLUTE AUTO 1.52 K/mm3 (0.84-5.20); LYMPHOCYTES PERCENT AUTO 17 % (21-46); MONOCYTES ABSOLUTE AUTO 0.81 K/mm3 (0.16-1.47); MONOCYTES PERCENT AUTO 9 % (4-13); Mean Corpuscular HGB 37.3 pg (26.0-34.0); Mean Corpuscular HGB Conc 34.6 g/dL (31.5-36.5); Mean Corpuscular Volume 108 fL (80-100); Mean Platelet Volume 9.8 fL (9.1-12.4); NEUTROPHILS ABSOLUTE AUTO 6.21 K/mm3 (1.96-9.15); NEUTROPHILS PERCENT AUTO 70 % (41-73); Platelet Count 175 K/mm3 (150-400); RDW Coefficient Variation 14.5 % (11.7-14.2); RDW Standard Deviation 57.3 fL (35.1-46.3); White Blood Cell Count 8.92 K/mm3 (4.00-11.30)
[2022-12-24 11:15] LABS: Albumin, Blood 3.9 g/dL (3.4-5.0); Albumin/Globulin Ratio 1.3 (0.8-1.8); Bilirubin, Total 0.5 mg/dL (0.1-1.0); Bun/Creatinine Ratio 10.8 (12.0-20.0); Calcium, Blood 9.1 mg/dL (8.5-10.1); Creatinine, Blood 0.65 mg/dL (0.40-1.00); Potassium, Blood 4.6 mmol/L (3.5-5.5); Total Protein, Blood 6.9 g/dL (6.4-8.2)
[2022-12-24] MEDS ORDERED: CEFP200 PO ×2 (13:02→14:43)
[2022-12-24] MEDS ORDERED: Diflucan150 MG PO ×2 (13:03→14:43)
[2022-12-24 13:15] VITALS: BP 107/77
== END 2022-12-24 13:14 | disposition home or self-care (01) ==
LOC: ER 09:05
PROVIDERS: Physician Assistant
DX: N39.0 Urinary tract infection, site not specified (principal); Z88.1 Allergy status to other antibiotic agents; Z91.09 Other allergy status, other than to drugs and biological substances; Z88.8 Allergy status to other drugs, medicaments and biological substances; Z79.01 Long term (current) use of anticoagulants; Z79.02 Long term (current) use of antithrombotics/antiplatelets; Z79.890 Hormone replacement therapy; Z79.899 Other long term (current) drug therapy; E03.9 Hypothyroidism, unspecified; K21.9 Gastro-esophageal reflux disease without esophagitis; G47.33 Obstructive sleep apnea (adult) (pediatric); J45.909 Unspecified asthma, uncomplicated; Z86.718 Personal history of other venous thrombosis and embolism; Z86.711 Personal history of pulmonary embolism
CPT/HCPCS: 76770; 80053; 81001; 81025; 83690; 85025; 87086; 96374; 96375; 99284-25; J0696; J1885

== ENCOUNTER 2023-09-13 06:12 | Day surgery (SDC) | payer OTHER ==
[~2023-09-13] VITALS: Ht 160 cm; Wt 113.3 kg
[2023-09-13] VITALS (10 sets, daily range): BP systolic 113–133; BP diastolic 74–96
[~2023-09-13 06:12] MED LIST changes: +CEFP200 PO; +MAGNESIUM OXID500 MG; +Rituxan10 MG/ML IV; +VITAMIN B-1100 M1 PO; +VITAMIN D362.5 MC1 PO
[2023-09-13] MEDS ORDERED: CeFAZolin Sodium 2,000 MG in NS 100 ML IV SCH (06:15)
[2023-09-13] MEDS ORDERED: Lactated Ringer's 1,000 ML IV SCH (06:15)
--- NOTE | 2023-09-13 07:00 | NUR ---
Ambulatory in Day Surgery Patient confirms NPO status and agrees with scheduled surgery. Pre-Op teaching done. Pt verbalizes understanding. History, Chart, Medications and Allergies reviewed before start of procedure.Patient States Post-Procedure ride home has been arranged.
[2023-09-13] MEDS ORDERED: Bupivacaine 0.5% HCl 5 MG/ML 30MLVIAL ONE (07:13)
[2023-09-13] MEDS ORDERED: propofoL 20 ML IV ONE (07:31)
[2023-09-13] MEDS ORDERED: FentaNYL Citrate 50 MCG/ML 2 ML Injection ONE (08:04)
[2023-09-13] MEDS ORDERED: Ondansetron HCl 2 MG / ML 2ML Vial ONE (08:27)
[2023-09-13] MEDS ORDERED: Metoclopramide HCl 5MG / ML 2ML Vial ONE (08:27)
[2023-09-13] MEDS ORDERED: Dexamethasone Sod Phos 10 MG/ML 1ML VIAL ONE (08:29)
--- NOTE | 2023-09-13 08:34 | NUR ---
09/13/23 0834 Santos Casanova I PT NOTED TO HAVE A REDDENED RASH ACROSS THE LOWER ABDOMEN, UNDER THE PANNIS, AND ALONG THE RIGHT THIGH.
[2023-09-13] MEDS ORDERED: HYDROmorphone HCl/Pf 1MG SYR ONE (09:36)
--- NOTE | 2023-09-13 09:59 | NUR ---
DISCHARGE: PT A/O, ON ROOM AIR. PT TOLERATING PO, DENIES PAIN. PT DRESSING REMAINS WITH SCANT AMT OF DRAINAGE WITH LYNDSEY IN PLACE. PT FAMILY BEEN AT BEDSIDE. Patient up to Ambulate independently. Gait steady. Discharge instructions reviewed with patient. Patient verbalizes understanding. Copy given to patient to take home, WELL FAMILY. Patient States Post-Procedure ride home has been arranged. Discharged via wheelchair to private car for ride home.
== END 2023-09-13 09:59 | disposition home or self-care (01) ==
LOC: ORSCMMR 06:12 → ORD 07:30 → ORSCMMR 09:59
PROVIDERS: Surgery
PROC: 0W9800Z Drainage of Chest Wall with Drainage Device, Open Approach (ICD-10-PCS; principal; 2023-09-13 08:00)
DX: L76.34 Postprocedural seroma of skin and subcutaneous tissue following other procedure (principal); Z90.13 Acquired absence of bilateral breasts and nipples; I10 Essential (primary) hypertension; J45.909 Unspecified asthma, uncomplicated; D68.61 Antiphospholipid syndrome; F32.A Depression, unspecified; M79.7 Fibromyalgia; E03.9 Hypothyroidism, unspecified; G47.33 Obstructive sleep apnea (adult) (pediatric); E66.01 Morbid (severe) obesity due to excess calories; Z68.41 Body mass index [BMI] 40.0-44.9, adult; Z86.711 Personal history of pulmonary embolism; M06.9 Rheumatoid arthritis, unspecified; Z79.02 Long term (current) use of antithrombotics/antiplatelets; Z79.01 Long term (current) use of anticoagulants; Z79.899 Other long term (current) drug therapy
CPT/HCPCS: J0690; J1100; J1170; J2405; J2704; J2765; J3010; J7120

== ENCOUNTER → 2023-10-16 | Outpatient (CLI) | payer OTHER | LOC: LAB SHORT 17:46 → LAB 17:46 | DX: N39.0 Urinary tract infection, site not specified (principal) | CPT/HCPCS: 87077; 87086; 87186 ==

== ENCOUNTER 2023-11-28 01:55 | Day surgery (SDC) | payer OTHER ==
[2023-11-28] MEDS ORDERED: Cosyntropin 0.25 MG / ML 1ML Vial IM SCH (08:30)
[2023-11-28 08:47] VITALS: BP 109/90
== END 2023-11-28 09:46 | disposition home or self-care (01) ==
LOC: ATC 01:55
DX: M06.09 Rheumatoid arthritis without rheumatoid factor, multiple sites (principal); Z79.52 Long term (current) use of systemic steroids
CPT/HCPCS: 36415; 80400; 82533; 96372; J0834

== ENCOUNTER 2024-01-22 11:09 | Emergency (ER) | payer OTHER ==
[~2024-01-22] VITALS: Ht 172.7 cm; Wt 128.4 kg
[2024-01-22 11:57] VITALS: BP 130/95
[2024-01-22 12:28] LABS: BASOPHILS ABSOLUTE AUTO 0.05 K/mm3 (0.00-0.23); BASOPHILS PERCENT AUTO 1 % (0-2); EOSINOPHILS ABSOLUTE AUTO 0.21 K/mm3 (0.00-0.68); EOSINOPHILS PERCENT AUTO 2 % (0-6); Hematocrit 36.3 % (33.0-51.0); Hemoglobin 12.6 g/dL (11.5-16.0); IMMATURE GRAN ABSOLUTE AUTO 0.08 K/mm3 (0.00-0.10); IMMATURE GRAN PERCENT AUTO 1 % (0-1); LYMPHOCYTES ABSOLUTE AUTO 1.21 K/mm3 (0.84-5.20); LYMPHOCYTES PERCENT AUTO 11 % (21-46); MONOCYTES ABSOLUTE AUTO 0.97 K/mm3 (0.16-1.47); MONOCYTES PERCENT AUTO 9 % (4-13); Mean Corpuscular HGB 36.3 pg (26.0-34.0); Mean Corpuscular HGB Conc 34.7 g/dL (31.5-36.5); Mean Corpuscular Volume 105 fL (80-100); Mean Platelet Volume 8.9 fL (9.1-12.4); NEUTROPHILS ABSOLUTE AUTO 8.38 K/mm3 (1.96-9.15); NEUTROPHILS PERCENT AUTO 77 % (41-73); Platelet Count 375 K/mm3 (150-400); RDW Coefficient Variation 15.7 % (11.7-14.2); RDW Standard Deviation 60.3 fL (35.1-46.3); Red Blood Cell Count 3.47 M/mm3 (3.80-5.20)
[2024-01-22 12:47] LABS: Prothrombin Time Results 83.2 Sec (9.7-11.5)
[2024-01-22 12:54] LABS: International Normalized Ratio 9.16
== END 2024-01-22 13:10 | disposition home or self-care (01) ==
LOC: ER 11:09
PROVIDERS: Emergency Medicine
DX: R79.1 Abnormal coagulation profile (principal)
CPT/HCPCS: 85025; 85610; 99284

== ENCOUNTER → 2024-03-07 | Outpatient (CLI) | payer MEDICARE, OTHER | LOC: LAB SHORT 17:30 → LAB 17:30 | DX: J06.9 Acute upper respiratory infection, unspecified (principal) | CPT/HCPCS: 87081 ==

== ENCOUNTER → 2024-03-13 | Outpatient (CLI) | payer OTHER | END | disposition home or self-care (01) | LOC: LAB 06:30 → LAB SHORT 06:30 | DX: E11.9 Type 2 diabetes mellitus without complications (principal) | CPT/HCPCS: 82043 ==

== ENCOUNTER 2024-06-03 08:31 | Emergency (ER) | payer MEDICARE, OTHER ==
[~2024-06-03] VITALS: Ht 160 cm; Wt 112.0 kg
[2024-06-03 09:33] VITALS: BP 111/84
== END 2024-06-03 09:38 | disposition home or self-care (01) ==
LOC: ER 08:31
DX: J10.1 Influenza due to other identified influenza virus with other respiratory manifestations (principal); B34.9 Viral infection, unspecified
CPT/HCPCS: 71046; 99284-25

== ENCOUNTER 2024-06-11 13:37 | Emergency (ER) | payer MEDICARE, OTHER ==
[~2024-06-11] VITALS: Ht 160 cm; Wt 107.5 kg
[2024-06-11] MEDS ORDERED: Acetaminophen 500 MG Tab PO ONE (14:30)
[2024-06-11 14:46] LABS: BASOPHILS ABSOLUTE AUTO 0.07 K/mm3 (0.00-0.23); BASOPHILS PERCENT AUTO 1 % (0-2); EOSINOPHILS PERCENT AUTO 1 % (0-6); Hematocrit 40.8 % (33.0-51.0); Hemoglobin 13.9 g/dL (11.5-16.0); IMMATURE GRAN ABSOLUTE AUTO 0.07 K/mm3 (0.00-0.10); IMMATURE GRAN PERCENT AUTO 1 % (0-1); LYMPHOCYTES ABSOLUTE AUTO 1.53 K/mm3 (0.84-5.20); LYMPHOCYTES PERCENT AUTO 15 % (21-46); MONOCYTES ABSOLUTE AUTO 0.82 K/mm3 (0.16-1.47); MONOCYTES PERCENT AUTO 8 % (4-13); Mean Corpuscular HGB 37.1 pg (26.0-34.0); Mean Corpuscular HGB Conc 34.1 g/dL (31.5-36.5); Mean Corpuscular Volume 109 fL (80-100); Mean Platelet Volume 9.2 fL (9.1-12.4); NEUTROPHILS ABSOLUTE AUTO 7.54 K/mm3 (1.96-9.15); NEUTROPHILS PERCENT AUTO 74 % (41-73); Platelet Count 280 K/mm3 (150-400); RDW Coefficient Variation 16.2 % (11.7-14.2); RDW Standard Deviation 64.7 fL (35.1-46.3); Red Blood Cell Count 3.75 M/mm3 (3.80-5.20); White Blood Cell Count 10.13 K/mm3 (4.00-11.30)
[2024-06-11 15:03] LABS: International Normalized Ratio 3.37
[2024-06-11 15:17] LABS: Bun/Creatinine Ratio 10.2 (12.0-20.0); Calcium, Blood 8.5 mg/dL (8.5-10.1); Creatinine, Blood 0.59 mg/dL (0.40-1.00)
[2024-06-11 16:19] VITALS: BP 120/75
== END 2024-06-11 16:19 | disposition home or self-care (01) ==
LOC: ER 13:37
PROVIDERS: Emergency Medicine
DX: S80.211A Abrasion, right knee, initial encounter (principal); R79.1 Abnormal coagulation profile; W18.30XA Fall on same level, unspecified, initial encounter
CPT/HCPCS: 70450; 80048; 85025; 85610; 85730; 99284-25; A9270

== ENCOUNTER → 2024-06-14 | Outpatient (CLI) | payer MEDICARE, OTHER | LOC: LAB 16:55 → LAB SHORT 16:55 | DX: N39.0 Urinary tract infection, site not specified (principal) | CPT/HCPCS: 87077; 87086; 87186 ==

== ENCOUNTER 2024-09-06 08:43 | Observation (INO) | payer MEDICARE, OTHER ==
[~2024-09-06] VITALS: Ht 160 cm; Wt 104.0 kg
[2024-09-06] MEDS ORDERED: DiphenhydrAMINE HCl 50 MG/ML 1ML Vial IV ONE (09:15)
[2024-09-06] MEDS ORDERED: Metoprolol Tartrate 1 MG/ML 5 ML VIAL IV PRN (09:15)
[2024-09-06] MEDS ORDERED: Dexamethasone Sod Phos 10 MG/ML 1ML VIAL IV ONE (09:15)
[2024-09-06] MEDS ORDERED: NS 1,000 ML IV SCH (09:15)
[2024-09-06 09:36] LABS: BASOPHILS ABSOLUTE AUTO 0.03 K/mm3 (0.00-0.23); BASOPHILS PERCENT AUTO 1 % (0-2); EOSINOPHILS ABSOLUTE AUTO 0.07 K/mm3 (0.00-0.68); EOSINOPHILS PERCENT AUTO 2 % (0-6); Hematocrit 41.4 % (33.0-51.0); Hemoglobin 15.1 g/dL (11.5-16.0); IMMATURE GRAN ABSOLUTE AUTO 0.02 K/mm3 (0.00-0.10); IMMATURE GRAN PERCENT AUTO 1 % (0-1); LYMPHOCYTES ABSOLUTE AUTO 1.79 K/mm3 (0.84-5.20); LYMPHOCYTES PERCENT AUTO 45 % (21-46); MONOCYTES ABSOLUTE AUTO 0.43 K/mm3 (0.16-1.47); MONOCYTES PERCENT AUTO 11 % (4-13); Mean Corpuscular HGB 38.3 pg (26.0-34.0); Mean Corpuscular HGB Conc 36.5 g/dL (31.5-36.5); Mean Corpuscular Volume 105 fL (80-100); Mean Platelet Volume 9.2 fL (9.1-12.4); NEUTROPHILS ABSOLUTE AUTO 1.64 K/mm3 (1.96-9.15); NEUTROPHILS PERCENT AUTO 41 % (41-73); Platelet Count 260 K/mm3 (150-400); RDW Coefficient Variation 13.8 % (11.7-14.2); RDW Standard Deviation 52.8 fL (35.1-46.3); Red Blood Cell Count 3.94 M/mm3 (3.80-5.20); White Blood Cell Count 3.98 K/mm3 (4.00-11.30)
[2024-09-06 09:44] LABS: International Normalized Ratio 1.72; Prothrombin Time Results 18.2 Sec (9.7-11.5)
[2024-09-06 09:45] LABS: Albumin, Blood 3.5 g/dL (3.4-5.0); Bilirubin, Total 0.7 mg/dL (0.1-1.0); Bun/Creatinine Ratio 7.5 (12.0-20.0); Calcium, Blood 8.9 mg/dL (8.5-10.1); Creatinine, Blood 0.67 mg/dL (0.40-1.00); Globulin, Blood 3.6 g/dL (2.2-4.0); Potassium, Blood 3.7 mmol/L (3.5-5.5); Total Protein, Blood 7.1 g/dL (6.4-8.2)
[2024-09-06] MEDS ORDERED: EpiNEPhrine 1 MG/1 ML 1ML Vial IM ONE (10:20)
[2024-09-06] MEDS ORDERED: Metoprolol Tartrate 50 MG Tab PO STA (13:16)
--- NOTE | 2024-09-06 17:05 | NUR ---
REPORT RECIEVED FROM ER NURSE AT 1709
[2024-09-06 17:31] VITALS: BP 118/84
--- NOTE | 2024-09-06 19:33 | NUR ---
ARRIVAL TO UNIT PT ARRIVED TO PCU AT 1715 VIA GURNEY AND ON RA. PT ABLE LTP TRNAFER FROM [facility] TO PCU BED ON HER OWN WITH NO ASSISTANCE, TOLERATED WELL. PT HR ST IN THE LOW 100'S AT TIME OF ARRIVAL. VSS. PT GOOD HISTORIAN FOR HER HISTORY QUESTIONS. PT PRESENT AT TIME OF ARRIVAL. BOTH ORIENTED TO ROOM, CALL LIGHT, AND NOTIFIED OF RAPID RESPONSE NUMBER.
[2024-09-06 19:35] VITALS: BP 107/79
[2024-09-06] MEDS ORDERED: Cyclobenzaprine HCl 10 MG Tab PO PRN (20:00)
[2024-09-06] MEDS ORDERED: Acetaminophen 325 MG TABLET PO PRN (20:05)
[2024-09-06] MEDS ORDERED: Albuterol HFA200 ACT/6.7 GM INH INH PRN (20:20)
[2024-09-06] MEDS ORDERED: Warfarin Sodium 4 MG Tab PO ONE (20:55)
[2024-09-06] MEDS ORDERED: Metoprolol Tartrate 50 MG Tab PO SCH (21:00)
[2024-09-06] MEDS ORDERED: PARoxetine HCl 20 MG Tab PO SCH (21:00)
[2024-09-06] MEDS ORDERED: Fluticasone 0.05% Nasal Spray SCH (21:00)
[2024-09-06] MEDS ORDERED: Gabapentin 300 MG Cap PO SCH (21:00)
[2024-09-06 23:51] VITALS: BP 111/81
[2024-09-07 03:20] VITALS: BP 123/88
[2024-09-07 05:08] LABS: International Normalized Ratio 1.91
--- NOTE | 2024-09-07 05:41 | NUR ---
SHIFT SUMMARY PATIENT REMAINED IN NSR WITH HR IN 70S-80S. PT DENIES CP/PALPITATIONS/CHEST TIGHTNESS. HOME MEDS RESTARTED. ADEQUATE URINE OUTPUT. VSS. PT C/O OF HEADACHE AT BEGINING OF SHIFT THAT RESOLVED WITHOUT INTERVENTION. PT POTENTIALLY TO D/C TODAY.
[2024-09-07] MEDS ORDERED: Levothyroxine Sodium 0.05 MG Tab PO SCH (06:00)
[2024-09-07 06:08] LABS: BASOPHILS PERCENT AUTO 0 % (0-2); EOSINOPHILS PERCENT AUTO 0 % (0-6); Hematocrit 37.3 % (33.0-51.0); Hemoglobin 13.1 g/dL (11.5-16.0); IMMATURE GRAN ABSOLUTE AUTO 0.02 K/mm3 (0.00-0.10); IMMATURE GRAN PERCENT AUTO 1 % (0-1); LYMPHOCYTES ABSOLUTE AUTO 0.59 K/mm3 (0.84-5.20); LYMPHOCYTES PERCENT AUTO 18 % (21-46); MONOCYTES ABSOLUTE AUTO 0.22 K/mm3 (0.16-1.47); MONOCYTES PERCENT AUTO 7 % (4-13); Mean Corpuscular HGB 37.5 pg (26.0-34.0); Mean Corpuscular HGB Conc 35.1 g/dL (31.5-36.5); Mean Corpuscular Volume 107 fL (80-100); Mean Platelet Volume 9.4 fL (9.1-12.4); NEUTROPHILS ABSOLUTE AUTO 2.47 K/mm3 (1.96-9.15); NEUTROPHILS PERCENT AUTO 75 % (41-73); Platelet Count 246 K/mm3 (150-400); RDW Coefficient Variation 13.9 % (11.7-14.2); RDW Standard Deviation 53.5 fL (35.1-46.3); Red Blood Cell Count 3.49 M/mm3 (3.80-5.20)
[2024-09-07 06:24] LABS: Bun/Creatinine Ratio 16.4 (12.0-20.0); Calcium, Blood 8.6 mg/dL (8.5-10.1); Creatinine, Blood 0.61 mg/dL (0.40-1.00); Potassium, Blood 3.9 mmol/L (3.5-5.5)
[2024-09-07] MEDS ORDERED: Pantoprazole Sodium 40 MG Tab PO SCH (07:30)
[2024-09-07 07:39] VITALS: BP 100/71
[2024-09-07] MEDS ORDERED: Loratadine 10 MG Tab PO SCH (09:00)
[2024-09-07] MEDS ORDERED: Potassium Chloride 20 MEQ TabCR PO SCH (09:00)
[2024-09-07] MEDS ORDERED: Topiramate 25 MG Tab PO SCH (09:00)
[2024-09-07] MEDS ORDERED: Metoprolol Tartrate 50 MG Tab PO SCH (09:00)
[2024-09-07] MEDS ORDERED: Liothyronine Sodium 5 MCG Tab PO SCH (09:00)
[2024-09-07] MEDS ORDERED: PredniSONE 5 MG Tab PO SCH (09:00)
[2024-09-07] MEDS ORDERED: Rosuvastatin Calcium 10 MG Tab PO SCH (09:00)
[2024-09-07] MEDS ORDERED: Clopidogrel Bisulfate 75 MG Tab PO SCH (09:00)
[2024-09-07 11:42] VITALS: BP 121/84
[2024-09-07] MEDS ORDERED: METO25 PO (14:27)
--- NOTE | 2024-09-07 15:02 | NUR ---
DISCHARGE UPDATE DISCHARGE PACKET GONE OVER WITH PT AND PT AT 1440. PT DISCHARGED AT 1455 VIA WHEELCHAIR AND ON RA. PT ABLE TO TRANSFER TO AND FROM WHEELCHAIR ON HER OWN, TOLERATED WELL. PERSONAL BELONGINGS AND DISCHARGE PACKET WITH PT AT TIME OF DISCHARGE.
[2024-09-11 13:19] LABS: PROTHROMBIN F2 G20210A VARIANT Negative; PT PCR SPECIMEN Whole Blood
== END 2024-09-07 16:00 | disposition home or self-care (01) ==
LOC: ER 08:43 → PCU 08:44
PROVIDERS: Emergency Medicine; Hospitalist; Internal Medicine; ADMIT Internal Medicine
DX: I48.91 Unspecified atrial fibrillation (principal); D68.61 Antiphospholipid syndrome; E03.9 Hypothyroidism, unspecified; G47.33 Obstructive sleep apnea (adult) (pediatric); M06.9 Rheumatoid arthritis, unspecified; K21.9 Gastro-esophageal reflux disease without esophagitis; J45.20 Mild intermittent asthma, uncomplicated; M79.7 Fibromyalgia; M32.9 Systemic lupus erythematosus, unspecified; E66.01 Morbid (severe) obesity due to excess calories; Z68.41 Body mass index [BMI] 40.0-44.9, adult; Z85.3 Personal history of malignant neoplasm of breast; Z79.01 Long term (current) use of anticoagulants; Z79.02 Long term (current) use of antithrombotics/antiplatelets; Z79.631 Long term (current) use of antimetabolite agent; Z79.890 Hormone replacement therapy; Z79.899 Other long term (current) drug therapy; Z88.1 Allergy status to other antibiotic agents; Z88.8 Allergy status to other drugs, medicaments and biological substances; Z91.041 Radiographic dye allergy status; Z91.048 Other nonmedicinal substance allergy status
CPT/HCPCS: 36415; 71260; 80048; 80053; 81240; 84484; 85025; 85610; 85730; 93005; 93010; 93306; 94762; 96361; 96374-59; 96375; 99285-25; A9270; G0378; J0171; J1100; J1200; J7030; J7512; Q9967

== ENCOUNTER → 2024-10-17 | Outpatient (CLI) | payer MEDICARE, OTHER ==
[2024-10-17 19:45] LABS: Bacterial Vaginosis PCR Negative (NEGATIVE); Candida Group, PCR NOT DETECTED (NOT DETECT)
[2024-10-17 23:38] LABS: Candida glabrata-krusei, PCR DETECTED (NOT DETECT)
== END ==
LOC: LAB 12:49 → LAB SHORT 12:49
PROVIDERS: Student in an Organized Health Care Education/Training Program
DX: R30.0 Dysuria (principal); N89.8 Other specified noninflammatory disorders of vagina
CPT/HCPCS: 81515; 87077; 87086; 87186

== ENCOUNTER → 2024-11-06 | Outpatient (CLI) | payer MEDICARE, OTHER | LOC: LAB SHORT 14:43 → LAB 14:43 | DX: R30.0 Dysuria (principal) | CPT/HCPCS: 87077; 87086; 87186 ==

== ENCOUNTER → 2025-02-19 | Outpatient (CLI) | payer MEDICARE, OTHER ==
[2025-02-19 18:19] LABS: Bacterial Vaginosis PCR Negative (NEGATIVE); Candida Group, PCR NOT DETECTED (NOT DETECT)
[2025-02-19 18:30] LABS: Candida glabrata-krusei, PCR DETECTED (NOT DETECT)
== END ==
LOC: LAB SHORT 16:15 → LAB 16:15
DX: N39.0 Urinary tract infection, site not specified (principal); N89.8 Other specified noninflammatory disorders of vagina; L29.89 Other pruritus
CPT/HCPCS: 81515; 87077; 87086; 87186